=== PATIENT | female | born 1945 | race Caucasian/White ===

== ENCOUNTER 2016-09-18 12:13 | Day surgery (SDC) | payer MEDICARE, OTHER ==
[2016-09-14 13:58] VITALS: BMI 36.1
[~2016-09-18 12:13] MED LIST: CLINDAMYCIN 900 MG in DEXTROSE 5% IN WATER 50 ML IVPB ONE; FAMOTIDINE 20 MG/2 ML VIAL IV PRN; HYDROmorphone 1 MG/ML 1 ML SYRINGE IVP PRN; LACTATED RINGERS 1,000 ML IV SCH; LIDOCAINE 1% 20 ML VIAL (10MG/ML) FOR IV START INTRADERMA PRN; MIDAZOLAM 2 MG/2 ML VIAL IV PRN; ONDANSETRON 4 MG/2 ML VIAL IVP PRN
[2016-09-18 12:34] VITALS: TEMP 97.8
[2016-09-18] MEDS ORDERED: BUPIVACAINE (PF) 0.5% 30 ML VIAL SQ ONE ×2 (14:03)
[2016-09-18] MEDS ORDERED: LIDOCAINE 1% (PF) 10MG/ML VIAL SQ ONE ×2 (14:03)
[2016-09-18] MEDS ORDERED: MIDAZOLAM 2 MG/2 ML VIAL ONE (14:10)
--- NOTE | 2016-09-18 14:41 | FL ---
FLUOROSCOPY 3 second of fluoroscopy time were utilized during internal fixation of the left long finger. 2 images document the procedure.
[2016-09-18 15:03] VITALS: RESP 20
[2016-09-18 15:08] VITALS: BP 156/78; PULSE 66
--- NOTE | 2016-09-18 19:24 | OP ---
DATE OF SERVICE: SURGEON: DEVENDRA PÉREZ DO CONDUCTOR/BRAKEMAN: PREOPERATIVE DIAGNOSIS: Flail left middle finger. POSTOPERATIVE DIAGNOSIS: Flail left middle finger. OPERATION: Closed reduction percutaneous pinning PIP joint, left middle finger. ANESTHESIA: ESTIMATED BLOOD LOSS: SPECIMENS REMOVED: COMPLICATIONS: OPERATIVE FINDINGS: INDICATIONS: 71-year-old woman has very little use of her left arm due to stroke. She has had prior severe finger contractures which were treated with flexor tendon release in the palm for hygiene purposes because she was digging her nails into her palm. The index, ring and little fingers responded in a satisfactory manner with release of tension. For some reason, the middle finger resulted in complete extension of all 3 joints. The middle finger frequently gets in the way with transfer and day-to-day activities and purpose is to position the finger in a more functional position. PROCEDURE: This 71-year-old woman was taken to the operative suite, given IV sedation, a very light sedation. Her hand was prepped and draped in the usual manner after digital block was performed with 7 mL of a combination of Xylocaine and Marcaine, both without epinephrine. After the hand was prepped and draped, using C-arm fluoroscopy, the PIP joint of the left middle finger was flexed in 90 degrees and a 0.062 K wire was drilled across the joint down the shaft of the middle phalanx. The pin was left shy of the DIP joint. It was cut as deep as possible and a small punch was used to further advance the pin flush with the bone. The intent is pinned indefinitely. There was no wound to close. The hand was cleansed. Soft, bulky dressing was applied. She was taken to recovery room in satisfactory condition.
== END 2016-09-18 15:25 ==
LOC: OR 12:13
PROVIDERS: ATTEND Orthopaedic Surgery Hand Surgery
DX: M25.242 Flail joint, left hand (principal); I25.10 Atherosclerotic heart disease of native coronary artery without angina pectoris; I48.91 Unspecified atrial fibrillation; I50.9 Heart failure, unspecified; I11.0 Hypertensive heart disease with heart failure; E07.9 Disorder of thyroid, unspecified; R56.9 Unspecified convulsions; K21.9 Gastro-esophageal reflux disease without esophagitis; Z79.899 Other long term (current) drug therapy; G40.909 Epilepsy, unspecified, not intractable, without status epilepticus; G30.9 Alzheimer's disease, unspecified; F02.80 Dementia in other diseases classified elsewhere, unspecified severity, without behavioral disturbance, psychotic disturbance, mood disturbance, and anxiety; M81.0 Age-related osteoporosis without current pathological fracture; Z79.02 Long term (current) use of antithrombotics/antiplatelets; Z88.1 Allergy status to other antibiotic agents; Z88.5 Allergy status to narcotic agent
CPT/HCPCS: 73140; 26776; C1713; J2250; J2405; J2001; 99152; 99153

== ENCOUNTER 2016-11-06 13:02 | Day surgery (SDC) | payer MEDICARE, OTHER ==
[2016-11-03 12:48] VITALS: BMI 34.2
[~2016-11-06 13:02] MED LIST changes: +DEXAMETHASONE SOD PHOSPHATE 10 MG/ML 1 ML VIAL IV ONE; -FAMOTIDINE 20 MG/2 ML VIAL IV PRN; +ONDANSETRON 4 MG/2 ML VIAL IVP ONE; -ONDANSETRON 4 MG/2 ML VIAL IVP PRN
[2016-11-06 13:55] VITALS: RESP 16; TEMP 97.5
[2016-11-06] MEDS ORDERED: LIDOCAINE 1% 20 ML VIAL (10MG/ML) FOR IV START INTRADERMA ONE ×2 (14:00→14:02)
[2016-11-06] MEDS ORDERED: PROPOFOL 10 MG/ML 20 ML VIAL IV ONE (14:52)
[2016-11-06] MEDS ORDERED: MIDAZOLAM 2 MG/2 ML VIAL ONE (14:52)
[2016-11-06] MEDS ORDERED: fentaNYL (PF) 50 MCG/ML 2 ML AMP ONE (14:52)
[2016-11-06] MEDS ORDERED: BUPIVACAINE (PF) 0.5% 30 ML VIAL SQ ONE (15:04)
[2016-11-06] MEDS ORDERED: LIDOCAINE 2% (PF) 20 MG/ML 10ML SQ ONE (15:04)
[2016-11-06 15:41] VITALS: BP 170/80; PULSE 68
--- NOTE | 2016-11-06 15:47 | XR ---
FLUOROSCOPY 4 seconds of fluoroscopy time were utilized during left finger pin removal. 2 images document the pro cedure.
--- NOTE | 2016-11-08 09:34 | OP ---
DATE OF SERVICE: 11/06/2016 SURGEON: DEVENDRA PÉREZ DO WEIGHT SHIFTER: PREOPERATIVE DIAGNOSIS: Irritating metal, left middle finger. POSTOPERATIVE DIAGNOSIS: Irritating metal, left middle finger. OPERATION: Removal of a K-wire left middle finger. ANESTHESIA: ESTIMATED BLOOD LOSS: SPECIMENS REMOVED: COMPLICATIONS: OPERATIVE FINDINGS: INDICATIONS: A 71-year-old woman had a K-wire inserted across her PIP joint of her left middle finger in an attempt to create a flexion contracture. She had a prior stroke and had a reconstructive procedure with flexor tendon release to prevent flexion contractures in the palm of her hand. This worked satisfactory for her index, ring and little but her middle finger went into full unopposed extension, which created another deformity. The attempt to create a middle position flexion contracture of the PIP joint with a K-wire failed as the K-wire broke through the dorsal aspect of the proximal phalanx. At this point, the metal is simply irritating and needs to be removed. DESCRIPTION OF PROCEDURE: This 71-year-old woman was taken to the operative suite, given IV sedation, and I did a digital block of her left middle finger with a combination of Xylocaine and Marcaine, both without epinephrine. Her hand was then prepped and draped in the usual manner. It was elevated, exsanguinated and cuff was inflated to 250 mmHg. Using C-arm fluoroscopy, the pin edge was identified. A longitudinal incision was made over the pin and dissection was taken down to the pin site. The pin was removed with a large needle driver starting gate without complication. C-arm fluoroscopy demonstrated complete removal of the pin with no evidence of a fracture or other apparent complication. The wound was irrigated. Tourniquet was released. Hemostasis was satisfactory. I elected to leave the wound to heal by secondary intention and did not use any sutures. Soft, bulky dressing was applied. She was taken to the recovery room in satisfactory condition.
== END 2016-11-06 16:15 | disposition home or self-care (01) ==
LOC: OR 13:02
PROVIDERS: ATTEND Orthopaedic Surgery Hand Surgery
DX: T84.84XD Pain due to internal orthopedic prosthetic devices, implants and grafts, subsequent encounter (principal); T84.220A Displacement of internal fixation device of bones of hand and fingers, initial encounter; M79.645 Pain in left finger(s); I25.10 Atherosclerotic heart disease of native coronary artery without angina pectoris; I50.9 Heart failure, unspecified; M81.0 Age-related osteoporosis without current pathological fracture; I10 Essential (primary) hypertension; E78.5 Hyperlipidemia, unspecified; I48.91 Unspecified atrial fibrillation; G30.9 Alzheimer's disease, unspecified; F02.80 Dementia in other diseases classified elsewhere, unspecified severity, without behavioral disturbance, psychotic disturbance, mood disturbance, and anxiety; E05.90 Thyrotoxicosis, unspecified without thyrotoxic crisis or storm; F32.9 Major depressive disorder, single episode, unspecified; J44.9 Chronic obstructive pulmonary disease, unspecified; G40.909 Epilepsy, unspecified, not intractable, without status epilepticus; G20 Parkinson's disease; E03.9 Hypothyroidism, unspecified; H54.0 Blindness, both eyes; Z79.899 Other long term (current) drug therapy; Z88.1 Allergy status to other antibiotic agents; Z88.5 Allergy status to narcotic agent; Z87.891 Personal history of nicotine dependence
CPT/HCPCS: 73140; 26320; J2250; J1100; J2001; J2405; J3010; J2704

== ENCOUNTER → 2017-05-25 | Outpatient (CLI) | payer MEDICARE, OTHER ==
--- NOTE | 2017-05-25 15:58 | MR ---
EXAMINATION TYPE: MR brain wo/w con DATE OF EXAM: 05/25/2017 COMPARISON: NONE HISTORY: Seizure disorder, stroke TECHNIQUE: Multiplanar, multisequence images of the brain and brainstem is performed without and with IV contras t, utilizing 9 ml mL intravenous Gadavist . FINDINGS: Diffusion weighted images demonstrate no evidence of a recent infarct or other diffusion abnormality. There is no extra-axial fluid collection or significant white matter signal abnormality. Pronounced prominence of the ventricular system is seen with sulcal atrophy. There is somewhat undulating appea misty of the contour of the body of the lateral ventricles. Turbulent flow is seen within the foramen of Martin. No abnormal enhancement is seen within the ventricular cavities are basal cisterns. Cereb ral aqueduct is patent and the fourth ventricle is dilated. There is thinning of the corpus callosum. Numerous scattered foci of T2/FLAIR hyperintensity are seen within the subcortical and periventricula r white matter with confluence in the right matthews radiata. The brain volume is age appropriate. The craniocervical junction appears within normal limits. Post contrast images demonstrate no abnorm al enhancement. Peripherally there are numerous enhancing artery and venous structures mimicking the appearance of pachymeningeal enhancement. The dural venous sinuses appear patent. The visualized sinu ses are clear and the globes are intact. Mesial temporal lobes appear symmetric morphology and signal characteristic without abnormal enhancement. IMPRESSION: 1. No evidence of acute hemorrhage or abnormal intracranial enhancement. 2. Dilation of the ventricular system somewhat out of proportion to the patient's age and peripheral sulcal atrophy. Consideration should be given to normal pressure hydrocephalus. Corpus callosal thinn ing could relate to age-related atrophy or long-standing hydrocephalus. 3. Mesial temporal lobes are unremarkable and symmetric in this patient with a history of seizures.
== END | disposition home or self-care (01) ==
LOC: RADMRIMAIN 13:49
PROVIDERS: ATTEND Psychiatry & Neurology Neurology
DX: G31.9 Degenerative disease of nervous system, unspecified (principal)
CPT/HCPCS: 70553; A9581

== ENCOUNTER 2017-09-13 14:32 | Inpatient (IN) | payer MEDICARE, OTHER ==
--- NOTE | 2017-09-13 14:59 | ED ---
General Adult HPI - General Chief complaint: Weakness Stated complaint: Altered Mental Status Time Seen by Provider: 09/13/17 14:43 Source: patient, EMS Mode of arrival: EMS Limitations: no limitations - History of Present Illness Initial comments: Ju Doran is a 72-year-old female with extensive past medical history including CVA in the past which left her with left-sided deficits, mental impairment and a baseline mental status of being alert and oriented to self only. Patient presents to the emergency department today via EMS from her snf facility for evaluation of generalized fatigue and fever. Per EMS the patient was noted to have a fever of 101 at her skilled nursing. They felt that she was less active and less responsive than usual so they sent her to the emergency department for further evaluation. Upon initial evaluation the patient is sleeping, she wakes to voice, she is able to say her name. When greeted with how low the patient's is high. When asked if she is in pain the patient says yes, when asked to localize the patient is unable to. Patient moans to any palpation of the arms, legs and abdomen. - Related Data Home Medications Medication Instructions Recorded Confirmed Doxazosin Mesylate 2 mg PO DAILY@0900 06/30/14 09/13/17 Folic Acid 1 mg PO DAILY@0906/30/14 09/13/17 Memantine [Namenda] 10 mg PO Q12H 06/30/14 09/13/17 Metoprolol Tartrate [Lopressor] 25 mg PO Q12H 06/30/14 09/13/17 Omeprazole [PriLOSEC] 20 mg PO BID@0600,1700 06/30/14 09/13/17 Simethicone [Gas-X] 125 mg PO PC-TID@,,18 06/30/14 09/13/17 Simvastatin [Zocor] 10 mg PO HS@209906/30/14 09/13/17 carBAMazepine [Carbatrol] 300 mg PO BID@0900,209906/30/14 09/13/17 lamoTRIgine [LaMICtal] 150 mg PO Q12H 06/30/14 09/13/17 Lactulose [Cephulac] 15 100ml.bag PO Q12HR 11/03/14 09/13/17 Potassium Chloride [Klor-Con 20] 20 meq PO DAILY@0900 11/03/14 09/13/17 Ipratropium-Albuterol Nebulize 3 ml INHALATION RT-Q4H PRN 11/20/14 09/13/17 [Duoneb 0.5 mg-3 mg/3 ml Soln] Dipyridamole-Aspirin 200-25 mg 1 tab PO BID@0900,1700 09/18/16 09/13/17 [Aggrenox 25MG -200MG] Acetaminophen Tab [Tylenol Tab] 650 mg PO Q4H PRN 11/03/16 09/13/17 Bismuth Subsalicylate 30 ml PO Q4HR PRN 11/03/16 09/13/17 [Pepto-Bismol] Calcium Carbonate [Tums] 500 mg PO Q6H PRN 11/03/16 09/13/17 Levothyroxine Sodium [Synthroid] 75 mcg PO DAILY@0600 11/03/16 09/13/17 Mag Hydrox/Al Hydrox/Simeth 30 ml PO Q4HR PRN 11/03/16 09/13/17 [Maalox] Valproic Acid [Depakene] 500 mg PO Q12H 11/03/16 09/13/17 guaiFENesin-DM 100-10MG/5ML 10 ml PO Q6HR PRN 11/03/16 09/13/17 [Robitussin DM] Ammonium Lactate Lotion 1 applic TOPICAL HS 09/13/17 09/13/17 [Lac-Hydrin 12% Lotion] DULoxetine HCL [Cymbalta] 20 mg PO DAILY@0900 09/13/17 09/13/17 Ensure Clear 120 ml PO TID@09,13,21 09/13/17 09/13/17 guaiFENesin [guaiFENesin Oral 200 mg PO Q4H PRN 09/13/17 09/13/17 Solution] Allergies Allergy/AdvReac Type Severity Reaction Status Date / Time Cephalosporins Allergy Unknown Verified 09/13/17 14:44 erythromycin lactobionate Allergy Unknown Verified 09/13/17 14:44 [From Erythrocin] propoxyphene napsylate Allergy Unknown Verified 09/13/17 14:44 [From Darvocet-N 100] Review of Systems ROS Statement: Those systems with pertinent positive or pertinent negative responses have been documented in the HPI. ROS Other: All systems not noted in ROS Statement are negative. Limitations: ROS unobtainable due to patients medical condition Past Medical History Past Medical History: Atrial Fibrillation, Coronary Artery Disease (CAD), Heart Failure, CVA/TIA, Dementia, Eye Disorder, Hyperlipidemia, Hypertension, Musculoskeletal Disorder, Neurologic Disorder, Pneumonia, Seizure Disorder, Thyroid Disorder Additional Past Medical History / Comment(s): HX OF METABOLIC ENCEPHALOPATHY, SEPSIS., LEGALLY BLIND, PARKINSONS, OSTEOPOROSIS, DEMENTIA, DELAYED DEVELOPMENT ,. plasma protein metabolic disorder, unspecified disease of pericardium, SOME EDEMA LOWER EXTREMITIES, UNKNOWN DATE OF LAST SEIZURE. ,HYPOTHYOID, UTI'S,ANEMIA , HEART DISEASE, CONTRACTURE LT HAND WITH FINGER DIGGING INTO PALM, , NAUSEATED EASILY.,INCONTINENT. URINE & STOOL- WEARS ATTENDS. , ALLAN LIFT, UNABLE TO STAND., DAVIDSON WRAP ON LEFT HAND FROM SURGERY 09/2016-NURSE STATES PIN LEFT MIDDLE FINGER-NO DRAINAGE. History of Any Multi-Drug Resistant Organisms: MRSA Date of last positivie culture/infection: 06/24/2014 MDRO Source:: Left First Toe Past Surgical History: Orthopedic Surgery Additional Past Surgical History / Comment(s): RT. ANKLE, EYES, 11/06/14 PEG TUBE , FLEXOR TENDON RELEASE SURGERIES FOR FINGER CONTRACTURES., CLOSED REDUCTION PERCUANEOUS PINNING LEFT MIDDLE FINGER.( 09/06/16) Past Anesthesia/Blood Transfusion Reactions: Unable to Obtain Additional Past Anesthesia/Blood Transfusion Reaction / Comment(s): UNKNOWN- PT @ [facility] ON THE [facility] Past Psychological History: Depression Smoking Status: Never smoker Past Alcohol Use History: None Reported Past Drug Use History: None Reported - Past Family History Father Family Medical History: Unable to Obtain Additional Family Medical History / Comment(s): . Mother Family Medical History: Unable to Obtain Additional Family Medical History / Comment(s): . General Exam Limitations: no limitations General appearance: other (Patient sleeping, wakes to voice) Head exam: Present: atraumatic, normocephalic Eye exam: Present: PERRL ENT exam: Present: normal exam Neck exam: Present: normal inspection Respiratory exam: Absent: respiratory distress Cardiovascular Exam: Present: regular rate, normal rhythm GI/Abdominal exam: Present: soft, other (obese, patient moans during exam, no guarding, does not localize pain to any specific region ) Rectal exam: Present: deferred External exam: Present: other (diapered) Extremities exam: Present: other (left arm weakness - baseline ) Neurological exam: Present: other (sleepy, wakes to voice, oriented to self) Skin exam: Present: warm, dry Course Vital Signs 09/13/17 09/13/17 09/13/17 14:36 15:58 17:10 Temperature 99.6 F Pulse Rate 78 80 90 Respiratory 16 18 16 Rate Blood Pressure 97/49 112/53 117/55 O2 Sat by Pulse 99 100 99 Oximetry EKG Findings - EKG Comments: EKG Findings:: EKG at 15:05 - rate 82, rhythm is sinus, normal axis, SC interval is prolonged with a first-degree AV block. There are no acute ST elevations or depressions noted. Medical Decision Making - Medical Decision Making Patient was seen and evaluated, vital signs were reviewed Patient was noted to be febrile at her skilled nursing, currently afebrile but hypotensive A sepsis workup was ordered including influenza PCR urinalysis reveals gross contamination, urine culture is ordered Patient is ALLERGIC to cephalosporins, Levaquin was ordered Sepsis identified - patient with hypotension, fever, UTI Labs reveal NAVA - IVF ordered Troponin mildly elevated - likely related to sepsis, EKG normal - will trend Patient care discussed with Dr. Murcia who accepts admission for sepsis 2/2 UTI , elevated trop, NAVA Agrees with workup and treatment as ordered - Lab Data Result diagrams: 09/13/17 15:10 09/13/17 15:10 Lab Results 09/13/17 09/13/17 09/13/17 Range/Units 15:10 15:10 15:10 WBC 7.9 (3.8-10.6) k/uL RBC 3.67 L (3.80-5.40) m/uL Hgb 11.9 (11.4-16.0) gm/dL Hct 39.3 (34.0-46.0) % MCV 107.1 H (80.0-100.0) fL MCH 32.5 (25.0-35.0) pg MCHC 30.3 L (31.0-37.0) g/dL RDW 13.3 (11.5-15.5) % Plt Count 136 L (150-450) k/uL Neutrophils % 91 % Lymphocytes % 3 % Monocytes % 4 % Eosinophils % 0 % Basophils % 0 % Neutrophils # 7.2 (1.3-7.7) k/uL Lymphocytes # 0.3 L (1.0-4.8) k/uL Monocytes # 0.3 (0-1.0) k/uL Eosinophils # 0.0 (0-0.7) k/uL Basophils # 0.0 (0-0.2) k/uL Hypochromasia Slight Macrocytosis Moderate PT (9.0-12.0) sec INR (<1.2) APTT (22.0-30.0) sec Sodium 140 (137-145) mmol/L Potassium 4.6 (3.5-5.1) mmol/L Chloride 104 (98-107) mmol/L Carbon Dioxide 27 (22-30) mmol/L Anion Gap 9 mmol/L BUN 22 H (7-17) mg/dL Creatinine 1.30 H (0.52-1.04) mg/dL Est GFR (MDRD) Af Amer 49 (>60 ml/min/1.73 sqM) Est GFR (MDRD) Non-Af 40 (>60 ml/min/1.73 sqM) Glucose 108 H (74-99) mg/dL Plasma Lactic Acid Junior 1.2 (0.7-2.0) mmol/L Calcium 8.5 (8.4-10.2) mg/dL Total Bilirubin 0.7 (0.2-1.3) mg/dL AST 24 (14-36) U/L ALT 17 (9-52) U/L Alkaline Phosphatase 155 H (38-126) U/L Troponin I (0.000-0.034) ng/mL Total Protein 6.2 L (6.3-8.2) g/dL Albumin 3.2 L (3.5-5.0) g/dL Urine Color Urine Appearance (Clear) Urine pH (5.0-8.0) Ur Specific [place] (1.001-1.035) Urine Protein (Negative) Urine Glucose (UA) (Negative) Urine Ketones (Negative) Urine Blood (Negative) Urine Nitrite (Negative) Urine Bilirubin (Negative) Urine Urobilinogen (<2.0) mg/dL Ur Leukocyte Esterase (Negative) Urine RBC (0-5) /hpf Urine WBC (0-5) /hpf Urine WBC Clumps (None) /hpf Amorphous Sediment (None) /hpf Urine Bacteria (None) /hpf Influenza Type A RNA (Not Detectd) Influenza Type B (PCR) (Not Detectd) 09/13/17 09/13/17 09/13/17 Range/Units 15:10 15:10 15:10 WBC (3.8-10.6) k/uL RBC (3.80-5.40) m/uL Hgb (11.4-16.0) gm/dL Hct (34.0-46.0) % MCV (80.0-100.0) fL MCH (25.0-35.0) pg MCHC (31.0-37.0) g/dL RDW (11.5-15.5) % Plt Count (150-450) k/uL Neutrophils % % Lymphocytes % % Monocytes % % Eosinophils % % Basophils % % Neutrophils # (1.3-7.7) k/uL Lymphocytes # (1.0-4.8) k/uL Monocytes # (0-1.0) k/uL Eosinophils # (0-0.7) k/uL Basophils # (0-0.2) k/uL Hypochromasia Macrocytosis PT 11.2 (9.0-12.0) sec INR 1.2 H (<1.2) APTT 23.8 (22.0-30.0) sec Sodium (137-145) mmol/L Potassium (3.5-5.1) mmol/L Chloride (98-107) mmol/L Carbon Dioxide (22-30) mmol/L Anion Gap mmol/L BUN (7-17) mg/dL Creatinine (0.52-1.04) mg/dL Est GFR (MDRD) Af Amer (>60 ml/min/1.73 sqM) Est GFR (MDRD) Non-Af (>60 ml/min/1.73 sqM) Glucose (74-99) mg/dL Plasma Lactic Acid Junior (0.7-2.0) mmol/L Calcium (8.4-10.2) mg/dL Total Bilirubin (0.2-1.3) mg/dL AST (14-36) U/L ALT (9-52) U/L Alkaline Phosphatase (38-126) U/L Troponin I 0.072 H* (0.000-0.034) ng/mL Total Protein (6.3-8.2) g/dL Albumin (3.5-5.0) g/dL Urine Color Dark Brown Urine Appearance Turbid H (Clear) Urine pH 6.0 (5.0-8.0) Ur Specific [place] 1.017 (1.001-1.035) Urine Protein 2+ H (Negative) Urine Glucose (UA) Negative (Negative) Urine Ketones Negative (Negative) Urine Blood Moderate H (Negative) Urine Nitrite Negative (Negative) Urine Bilirubin 1+ H (Negative) Urine Urobilinogen 8.0 (<2.0) mg/dL Ur Leukocyte Esterase Large H (Negative) Urine RBC 137 H (0-5) /hpf Urine WBC >182 H (0-5) /hpf Urine WBC Clumps Many H (None) /hpf Amorphous Sediment Few H (None) /hpf Urine Bacteria Many H (None) /hpf Influenza Type A RNA (Not Detectd) Influenza Type B (PCR) (Not Detectd) 09/13/17 Range/Units 15:13 WBC (3.8-10.6) k/uL RBC (3.80-5.40) m/uL Hgb (11.4-16.0) gm/dL Hct (34.0-46.0) % MCV (80.0-100.0) fL MCH (25.0-35.0) pg MCHC (31.0-37.0) g/dL RDW (11.5-15.5) % Plt Count (150-450) k/uL Neutrophils % % Lymphocytes % % Monocytes % % Eosinophils % % Basophils % % Neutrophils # (1.3-7.7) k/uL Lymphocytes # (1.0-4.8) k/uL Monocytes # (0-1.0) k/uL Eosinophils # (0-0.7) k/uL Basophils # (0-0.2) k/uL Hypochromasia Macrocytosis PT (9.0-12.0) sec INR (<1.2) APTT (22.0-30.0) sec Sodium (137-145) mmol/L Potassium (3.5-5.1) mmol/L Chloride (98-107) mmol/L Carbon Dioxide (22-30) mmol/L Anion Gap mmol/L BUN (7-17) mg/dL Creatinine (0.52-1.04) mg/dL Est GFR (MDRD) Af Amer (>60 ml/min/1.73 sqM) Est GFR (MDRD) Non-Af (>60 ml/min/1.73 sqM) Glucose (74-99) mg/dL Plasma Lactic Acid Junior (0.7-2.0) mmol/L Calcium (8.4-10.2) mg/dL Total Bilirubin (0.2-1.3) mg/dL AST (14-36) U/L ALT (9-52) U/L Alkaline Phosphatase (38-126) U/L Troponin I (0.000-0.034) ng/mL Total Protein (6.3-8.2) g/dL Albumin (3.5-5.0) g/dL Urine Color Urine Appearance (Clear) Urine pH (5.0-8.0) Ur Specific [place] (1.001-1.035) Urine Protein (Negative) Urine Glucose (UA) (Negative) Urine Ketones (Negative) Urine Blood (Negative) Urine Nitrite (Negative) Urine Bilirubin (Negative) Urine Urobilinogen (<2.0) mg/dL Ur Leukocyte Esterase (Negative) Urine RBC (0-5) /hpf Urine WBC (0-5) /hpf Urine WBC Clumps (None) /hpf Amorphous Sediment (None) /hpf Urine Bacteria (None) /hpf Influenza Type A RNA Not Detected (Not Detectd) Influenza Type B (PCR) Not Detected (Not Detectd) Disposition Clinical Impression: Sepsis, Urinary tract infection, Altered mental status, NAVA (acute kidney injury) Disposition: ADMITTED IP TO THIS HOSP Condition: Fair Referrals: Luiz Ortiz MD [Primary Care Provider] - 1-2 days Time of Disposition: 17:00
[2017-09-13] MEDS: SODIUM CHLORIDE 0.9% 500 ML IV SCH ×2 (15:18→16:25)
[2017-09-13 15:28] LABS: Basophils % (A) 0 %; Eosinophils % (A) 0 %; HCT 39.3 % (34.0-46.0); HGB 11.9 gm/dL (11.4-16.0); Hypochromasia Slight; Lymphocytes # (A) 0.3 k/uL (1.0-4.8); Lymphocytes % (A) 3 %; MCH 32.5 pg (25.0-35.0); MCHC 30.3 g/dL (31.0-37.0); MCV 107.1 fL (80.0-100.0); Macrocytosis Moderate; Mean Platelet Volume 6.7; Monocytes # (A) 0.3 k/uL (0-1.0); Monocytes % (A) 4 %; Neutrophils # (A) 7.2 k/uL (1.3-7.7); Neutrophils % (A) 91 %; Platelet Count 136 k/uL (150-450); RBC 3.67 m/uL (3.80-5.40); RDW 13.3 % (11.5-15.5); WBC 7.9 k/uL (3.8-10.6)
[2017-09-13 15:30] LABS: Amorphous Sediment,Urine Few /hpf; Appearance,Urine Turbid (Clear); Bacteria,Urine Many /hpf; Bilirubin,Urine 1+ (Negative); Blood,Urine Moderate (Negative); Color,Urine Dark Brown; Glucose,Urine (UA) Negative (Negative); Ketones,Urine Negative (Negative); Leukocyte Esterase,Urine Large (Negative); Nitrite,Urine Negative (Negative); Protein,Urine 2+ (Negative); RBC,Urine 137 /hpf (0-5); Specific Gravity,Urine 1.017 (1.001-1.035); WBC,Urine >182 /hpf (0-5)
[2017-09-13 15:33] LABS: INR 1.2 (<1.2); Partial Thromboplastin Time 23.8 sec (22.0-30.0); Prothrombin Time 11.2 sec (9.0-12.0)
[2017-09-13 15:36] LABS: Albumin 3.2 g/dL (3.5-5.0); Calcium 8.5 mg/dL (8.4-10.2); Potassium 4.6 mmol/L (3.5-5.1); Total Bilirubin 0.7 mg/dL (0.2-1.3); Total Protein 6.2 g/dL (6.3-8.2)
--- NOTE | 2017-09-13 15:38 | XR ---
EXAMINATION TYPE: XR chest 1V portable DATE OF EXAM: 09/13/2017 COMPARISON: Chest x-ray November 04, 2014 HISTORY: Fever. TECHNIQUE: Single AP portable frontal upright view of the chest is obtained. FINDINGS: There is chronic parenchymal change with elevated right hemidiaphragm and patchy right bas ilar and left midlung opacities that remains present. The cardiac silhouette size remains enlarged w ith atherosclerotic change in aortic knob. The osseous structures remain demineralized. Underlying le voconvex scoliosis is redemonstrated. Cholecystectomy clips are noted. IMPRESSION: Cardiomegaly and chronic changes with possible left midlung and right basilar acute infil trates, correlate clinically.
[2017-09-13] MEDS ORDERED: HEPARIN SODIUM,PORCINE 5,000 UNIT/ML 1 ML VIAL IV ONE (16:04)
[2017-09-13] MEDS ORDERED: HEPARIN SODIUM,PORCINE 5,000 UNIT/ML 1 ML VIAL IV PRN (16:04)
[2017-09-13] MEDS ORDERED: HEPARIN SOD,PORK IN 0.45% NACL 25,000 UNIT in 0.45% NACL 1 500ML.BAG IV SCH (16:15)
[2017-09-13] MEDS: SODIUM CHLORIDE 0.9% 1,000 ML IV SCH (16:25)
[2017-09-13] MEDS ORDERED: LEVOFLOXACIN 750MG-D5W PMX 750 MG in DEXTROSE/WATER 1 150ML.BAG IVPB STA (16:28)
[2017-09-13] MEDS ORDERED: NALOXONE 0.4 MG/ML 1 ML VIAL IV PRN (16:50)
[2017-09-13] MEDS ORDERED: guaiFENesin SYRUP 100MG/5ML 200 MG/10 ML CUP PO PRN (18:16)
[2017-09-13] MEDS ORDERED: CALCIUM CARBONATE 500 MG CHEWABLE PO PRN (18:16)
[2017-09-13] MEDS: IPRATROPIUM-ALBUTEROL 3 ML NEB INHALATION PRN (19:52)
[2017-09-13] MEDS ORDERED: ENSURE CLEAR PO SCH (21:00)
[2017-09-13] MEDS: LACTULOSE 20 GM/30 ML CUP PO SCH (21:25)
[2017-09-13] MEDS: ACETAMINOPHEN TAB 325 MG TAB PO PRN (21:25)
[2017-09-13] MEDS: AMMONIUM LACTATE 12% LOTION 225 GM BTL TOPICAL SCH (21:26)
[2017-09-13] MEDS: ATORVASTATIN 10 MG TAB PO SCH (21:26)
[2017-09-13] MEDS: VALPROIC ACID ORAL SOLN 250 MG/5 ML CUP PO SCH (21:26)
[2017-09-13] MEDS: carBAMazepine 300 MG CPMP.12HR PO SCH (21:32)
[2017-09-13] MEDS: METOPROLOL TARTRATE 25 MG TAB PO SCH (21:32)
[2017-09-13] MEDS: MEMANTINE 10 MG TAB PO SCH (21:33)
[2017-09-13] MEDS: lamoTRIgine 100 MG TAB PO SCH (21:33)
[2017-09-14] MEDS: SODIUM CHLORIDE 0.9% 1,000 ML IV SCH ×2 (04:39→12:58)
[2017-09-14] MEDS: PANTOPRAZOLE 40 MG TABLET PO SCH (06:17)
[2017-09-14] MEDS: LEVOTHYROXINE 75 MCG TAB PO SCH (06:17)
[2017-09-14] MEDS: lamoTRIgine 100 MG TAB PO SCH ×2 (06:17→18:18)
[2017-09-14] MEDS ORDERED: ONDANSETRON 4 MG/2 ML VIAL IVP PRN (08:14)
[2017-09-14] MEDS: IPRATROPIUM-ALBUTEROL 3 ML NEB INHALATION PRN (08:37)
[2017-09-14] MEDS: carBAMazepine 300 MG CPMP.12HR PO SCH ×2 (10:10→20:55)
[2017-09-14] MEDS: DIPYRIDAMOLE-ASPIRIN 200-25 MG 1 EACH CPMP.12HR PO SCH ×2 (10:10→18:18)
[2017-09-14] MEDS: DOXAZOSIN 2 MG TAB PO SCH (10:10)
[2017-09-14] MEDS: MEMANTINE 10 MG TAB PO SCH ×2 (10:11→20:56)
[2017-09-14] MEDS: DULoxetine HCL 20 MG CAPSULE.DR PO SCH (10:11)
[2017-09-14] MEDS: LACTULOSE 20 GM/30 ML CUP PO SCH ×2 (10:11→20:55)
[2017-09-14] MEDS: METOPROLOL TARTRATE 25 MG TAB PO SCH ×2 (10:12→20:56)
[2017-09-14] MEDS: SIMETHICONE 80 MG CHEWABLE PO SCH ×3 (10:12→18:18)
[2017-09-14] MEDS: VALPROIC ACID ORAL SOLN 250 MG/5 ML CUP PO SCH ×2 (10:12→20:56)
[2017-09-14] MEDS: FOLIC ACID 1 MG TAB PO SCH (12:58)
[2017-09-14] MEDS: ACETAMINOPHEN TAB 325 MG TAB PO PRN ×2 (14:38→22:48)
--- NOTE | 2017-09-14 18:01 | HP ---
HISTORY AND PHYSICAL DATE OF ADMISSION: 09/13/2017 PRESENTING COMPLAINT: Fever. HISTORY OF PRESENTING COMPLAINT: This is a 72-year-old patient who follows with Dr. Ortiz. She is a resident of [facility]. She has a rather extensive medical history. Chronic stable medical conditions include congestive heart failure, EF not known, Alzheimer's dementia, hypertension, hyperlipidemia, seizure disorder, hypothyroid, bilateral footdrop, chronic urine incontinence, left-sided weakness, Parkinson disease. The patient at her baseline needs a Troy lift. The patient is able to answer some simple questions. The patient presented with fever. The patient denies any cough. No shortness of breath. The patient was found to have extremely infected-appearing urine. The patient was meeting sepsis criteria in the ER and was given a dose of IV antibiotic, given IV fluids. The patient says she does not have much of an appetite. Admitted for the same. REVIEW OF SYSTEMS: Difficult to obtain. GENERAL: Tired. HEENT: None. RESPIRATORY: None. CARDIOVASCULAR: None. GASTROINTESTINAL: None. GENITOURINARY: Incontinent. DERMATOLOGICAL: None. HEMATOLOGICAL: None. LYMPHATICS: None. PSYCHIATRY: Unable to determine. NEUROLOGICAL: Left-sided weakness, bilateral footdrop. PAST MEDICAL HISTORY: 1. Atrial fibrillation. 2. Congestive heart failure. 3. Alzheimer's. 4. Hypertension. 5. Hyperlipidemia. 6. Seizure disorder. 7. Hypothyroid. 8. Bilateral footdrop. 9. Chronic urine incontinence. 10.Left-sided weakness. 11.Parkinson disease. 12.Osteoporosis. 13.Patient does use a Troy left. PAST SURGICAL HISTORY: 1. Right ankle surgery. 2. Patient did have a PEG tube in 2014. 3. Flexor tendon release surgery for finger contractures. PSYCH HISTORY: History of depression. SOCIAL HISTORY: Currently a resident of [facility] the [facility], bed-bound and needs a Troy lift to her wheelchair. Patient can speak slowly. She is legally blind. She has a legal guardian, Arie Romero. No smoking. No alcohol. FAMILY HISTORY: Patient cannot tell. HOME MEDICATIONS: 1. Lamictal 150 mg q.12. 2. Robitussin DM 10 mL q.6 p.r.n. 3. Guaifenesin 200 mg q.4 p.r.n. 4. Carbatrol 300 mg p.o. b.i.d. 5. Depakene 500 mg p.o. q.12. 6. Zocor 10 mg p.o. at bedtime. 7. Gas-X 125 mg p.o. before meals t.i.d. 8. Potassium 20 mEq p.o. daily. 9. Prilosec 20 mg p.o. b.i.d. 10.Lopressor 25 p.o. q.12. 11.Namenda 10 mg p.o. q.12. 12.Maalox 30 mL q.4 p.r.n. 13.Synthroid 75 mcg p.o. daily. 14.Lactulose q.12. 15.DuoNeb q.4 p.r.n. 16.Folic acid 1 mg a day. 17.Ensure 120 mL p.o. t.i.d. 18.Doxazosin 2 mg p.o. daily. 19.Aggrenox 1 tablet p.o. b.i.d. 20.Cymbalta 20 mg p.o. daily. 21.Tums 500 mg q.6 p.r.n. 22.Pepto-Bismol 30 mL p.o. q.4 p.r.n. 23.Lac-Hydrin 12% topically at bedtime. 24.Tylenol. ALLERGIES: 1. CEPHALOSPORINS. 2. ERYTHROMYCIN. 3. DARVOCET-N 100. PHYSICAL EXAMINATION: VITAL SIGNS ON PRESENTATION: Temperature 100.4, pulse 104, respiration 16, blood pressure 130/59, pulse ox 94% on 3 L. GENERAL APPEARANCE: Well built, BMI 30.8. Propped up in bed, tired-appearing. EYES: Pupils equal. Conjunctivae normal. HEENT: External appearance of nose and ears normal. Oral cavity dry mucous membrane. NECK: JVD not raised. Mass not palpable. RESPIRATORY: Effort normal. LUNGS: Diminished breath sounds. CARDIOVASCULAR: First and second sounds normal. No edema. ABDOMEN: Soft, nontender. Liver and spleen not palpable. LYMPHATIC: No lymph node palpable in neck or axillae. PSYCHIATRY: Cannot really be assessed. Patient is only able answer some simple questions. Mood and affect slightly low. NEUROLOGICAL: Pupils equal. No facial asymmetry. Patient takes time to speak and then does speak a few words. She is dysarthric. The patient is able to lift both her arms, not her legs. Bilateral footdrop. Patient has a contracture of the left distal hand. INVESTIGATIONS: White count 7.9, hemoglobin 11.9, platelets 136, potassium 4.6, BUN 22, creatinine 1.30. The last creatinine is from 2014, being 0.4. Troponin 0.072. UA showing large leukocyte esterase, WBC. C difficile negative. Influenza negative. EKG normal sinus rhythm. Chest x-ray chronic parenchymal changes, elevated right diaphragm, and patchy right basilar and left lung opacities probably are present. ASSESSMENT: 1. Acute sepsis, likely from urinary tract infection, given lack of respiratory symptoms, though a limited historian. Pneumonia looks unlikely but cannot entirely rule it out. 2. Paroxysmal atrial fibrillation, currently in sinus rhythm. 3. Chronic congestive heart failure; ejection fraction not known. 4. Alzheimer's dementia, late onset type. 5. Hypertension. 6. Hyperlipidemia. 7. Seizure disorder. 8. Hypothyroid. 9. Bilateral footdrop. 10.Chronic urinary incontinence. 11.Depression not otherwise specified. 12.Chronic osteopenia. 13.Chronic medical debility. At her baseline, patient uses a Troy lift. 14.Chronic dysarthria, likely from underlying old stroke. 15.Possible acute renal failure; could be prerenal from decreased oral intake. Will hydrate the patient and see where the creatinine goes from here. 16.CODE STATUS: DO NOT RESUSCITATE. PLAN: The patient will be started on IV ceftriaxone. Also will be giving IV fluids with the look of the acute renal failure component. MMODL / IJN: [id number] /
[2017-09-14] MEDS: cefTRIAXone IN SWFI 1,000 MG/10 ML SYRINGE IVP SCH (18:18)
[2017-09-14] MEDS: LACTATED RINGERS 1,000 ML IV SCH (18:19)
[2017-09-14] MEDS: ATORVASTATIN 10 MG TAB PO SCH (20:54)
[2017-09-14] MEDS: AMMONIUM LACTATE 12% LOTION 225 GM BTL TOPICAL SCH (20:57)
[2017-09-15] MEDS: lamoTRIgine 100 MG TAB PO SCH ×2 (06:39→17:44)
[2017-09-15] MEDS: LEVOTHYROXINE 75 MCG TAB PO SCH (06:39)
[2017-09-15] MEDS: LACTATED RINGERS 1,000 ML IV SCH ×2 (06:39→20:06)
[2017-09-15] MEDS: PANTOPRAZOLE 40 MG TABLET PO SCH (06:40)
[2017-09-15 07:14] LABS: Anion Gap 9 mmol/L; Blood Urea Nitrogen 14 mg/dL (7-17); Calcium 8.8 mg/dL (8.4-10.2); Carbon Dioxide 25 mmol/L (22-30); Chloride 109 mmol/L (98-107); Glucose 92 mg/dL (74-99); Sodium 143 mmol/L (137-145)
[2017-09-15 07:27] LABS: Potassium 4.2 mmol/L (3.5-5.1)
[2017-09-15] MEDS: LACTULOSE 20 GM/30 ML CUP PO SCH ×2 (08:22→20:22)
[2017-09-15] MEDS: carBAMazepine 300 MG CPMP.12HR PO SCH ×2 (08:22→20:22)
[2017-09-15] MEDS: DIPYRIDAMOLE-ASPIRIN 200-25 MG 1 EACH CPMP.12HR PO SCH ×2 (08:22→17:40)
[2017-09-15] MEDS: DULoxetine HCL 20 MG CAPSULE.DR PO SCH (08:23)
[2017-09-15] MEDS: MEMANTINE 10 MG TAB PO SCH ×2 (08:24→20:23)
[2017-09-15] MEDS: SIMETHICONE 80 MG CHEWABLE PO SCH ×3 (08:24→17:41)
[2017-09-15] MEDS: VALPROIC ACID ORAL SOLN 250 MG/5 ML CUP PO SCH ×2 (08:24→20:23)
[2017-09-15] MEDS: METOPROLOL TARTRATE 25 MG TAB PO SCH ×2 (08:24→20:26)
--- NOTE | 2017-09-15 11:35 | P.PN ---
Progress Note - Text Progress Note Date: 09/15/17 DATE OF SERVICE: 09/15/2017 PRESENTING COMPLAINT: Fever/urosepsis HISTORY OF PRESENT ILLNESS: 72-year-old female resident of [facility] requires Troy lift at baseline able to answer some simple questions presented to the emergency department with fever. Initial diagnostics reveal extremely infected appearing urine and meeting sepsis criteria in the emergency department given a dose antibiotics and IV fluids. Admitted for the same. INTERVAL HISTORY: 09/15/2017: Lying in bed, no acute overnight events, vital signs stable, afebrile, complaining of abdominal pain this morning, has tenderness to palpation. Did not eat her breakfast due to stomach pains. Is able to answer a few more questions today. Last BM 09/15/2017. REVIEW OF SYSTEMS: Done for constitutional ,cardiovascular, GI, pulmonary with relevant findings as above. CURRENT MEDICATIONS Acetaminophen, DuoNeb, Lipitor, Tums, carbamazepine, Rocephin, Aggrenox, Cardura , duloxetine, folic acid, Robitussin, lactated Ringer's, Lac-Hydrin 12%, lactulose, Lamictal, Synthroid, Namenda, metoprolol tartrate, Narcan, Zofran, Protonix, simethicone, valproic acid. PHYSICAL EXAM VITAL SIGNS: Temperature 98.8, pulse 76, respiratory rate 18, blood pressure 127/59, oxygen saturation 99% on 3 L. GENERAL APPEARANCE: Lying in bed, pale tired appearing, not in distress. HENT: Normocephalic, JVD not raised. Mass not palpable. Oral cavity dry mucous membranes, external appearance of ears and nose normal. EYES:Pupils equal. Conjunctiva normal. RESPIRATORY: Respiratory effort normal. Lungs diminished to auscultation. CARDIOVASCULAR: First and second sounds normal. No edema. ABDOMEN: Soft. Liver and spleen not palpable. tenderness to palpation. No mass palpable. PSYCHIATRY: Unable to assess able only to answer simple questions, mood and affect somewhat low. NEUROLOGICAL: Takes time to speak then speaks a few words. Dysarthric. Able to lift both of her arms. Unable to lift legs, bilateral foot drop. Left hand has a contracture. INVESTIGATIONS: LABS: Sodium 143, chloride 109, BUN 14, creatinine 0.60. ASSESSMENT: -Acute sepsis, likely from urinary tract infection, given lack respiratory symptoms though a limited historian. Pneumonia in the differential and looks unlikely but not entirely ruled out. -Acute abdominal pain in a patient with a severe urinary tract infection, having bowel movements, causing nausea -Paroxysmal atrial fibrillation, currently in sinus rhythm. -Chronic congestive heart failure, ejection fraction not known. -Alzheimer's dementia, late onset type. -Hypertension. -Hyperlipidemia. -Seizure disorder. -Hypothyroidism. -Bilateral foot drop. -Chronic urinary incontinence. -Depression not otherwise specified. -Chronic osteopenia. -Chronic medical debility, at her baseline uses a Troy lift. -Chronic dysarthria, likely from underlying old stroke. -Possible acute renal failure, could be prerenal from decreased oral intake, resolved -CODE STATUS DO NOT RESUSCITATE PLAN: Abdominal x-ray and Zofran ordered. Continue current antibiotic course and IV fluids as patient intake remains low. Plan of care discussed at the bedside we will follow closely. CLINICAL DOCUMENTATION DEVELOPER statement: Patient was seen and examined by nurse practitioner Jacy Winn and all elements of the case discussed with attending Dr. Murcia
[2017-09-15] MEDS: FOLIC ACID 1 MG TAB PO SCH (13:01)
[2017-09-15] MEDS: DOXAZOSIN 2 MG TAB PO SCH (13:01)
[2017-09-15] MEDS: cefTRIAXone IN SWFI 1,000 MG/10 ML SYRINGE IVP SCH (14:06)
--- NOTE | 2017-09-15 17:23 | XR ---
EXAMINATION TYPE: XR abdomen 2V DATE OF EXAM: 09/15/2017 5:11 PM CLINICAL HISTORY: Abdominal pain TECHNIQUE: 3 views the abdomen were obtained. COMPARISON: None. FINDINGS: Large amount stool noted in the rectum which could be inspissated and impacted. There appea rs to be rectal wall thickening. There is an overall nonobstructive nonspecific bowel gas pattern. Tracy rgical clips are seen in the gallbladder fossa. IMPRESSION: Likely impacted stool is noted in the rectum.
[2017-09-15] MEDS: AMMONIUM LACTATE 12% LOTION 225 GM BTL TOPICAL SCH (20:22)
[2017-09-15] MEDS: ATORVASTATIN 10 MG TAB PO SCH (20:22)
--- NOTE | 2017-09-16 00:38 | PN ---
PROGRESS NOTE DATE OF SERVICE: September 15, 2017. ATTENDING NOTE: Patient seen and examined by me. Discussed with nurse practitioner Ms. Winn. This is a patient admitted with sepsis from urinary tract infection. The patient is having some bowel retention causing some abdominal discomfort. Did tolerate some diet. PHYSICAL EXAMINATION: Afebrile. ABDOMEN: Soft. Minimal tenderness. No guarding, rigidity. BUN 14, creatinine 0.60. Urine culture growing Klebsiella pneumonia. ASSESSMENT: 1. Acute urinary tract infection from Klebsiella pneumonia causing sepsis present on admission. 2. Acute stool retention from severe constipation. PLAN: We will switch the patient's antibiotics to Keflex. Ordered a soap suds enema. Other medication to continue. MMODL / IJN: [id number] /
[2017-09-16] MEDS: PANTOPRAZOLE 40 MG TABLET PO SCH (06:19)
[2017-09-16] MEDS: LEVOTHYROXINE 75 MCG TAB PO SCH (06:19)
[2017-09-16] MEDS: lamoTRIgine 100 MG TAB PO SCH ×2 (06:20→17:52)
[2017-09-16] MEDS: carBAMazepine 300 MG CPMP.12HR PO SCH ×2 (10:34→21:01)
[2017-09-16] MEDS: CEPHALEXIN 250 MG CAP PO SCH ×4 (10:35→21:01)
[2017-09-16] MEDS: MEMANTINE 10 MG TAB PO SCH ×2 (10:36→21:01)
[2017-09-16] MEDS: DIPYRIDAMOLE-ASPIRIN 200-25 MG 1 EACH CPMP.12HR PO SCH ×2 (10:36→17:51)
[2017-09-16] MEDS: LACTULOSE 20 GM/30 ML CUP PO SCH ×2 (10:37→21:05)
[2017-09-16] MEDS: DOXAZOSIN 2 MG TAB PO SCH (10:37)
[2017-09-16] MEDS: METOPROLOL TARTRATE 25 MG TAB PO SCH ×2 (10:38→21:01)
[2017-09-16] MEDS: VALPROIC ACID ORAL SOLN 250 MG/5 ML CUP PO SCH ×2 (10:38→21:05)
[2017-09-16] MEDS: DULoxetine HCL 20 MG CAPSULE.DR PO SCH (10:38)
[2017-09-16] MEDS: SIMETHICONE 80 MG CHEWABLE PO SCH ×3 (10:39→17:52)
[2017-09-16] MEDS: FOLIC ACID 1 MG TAB PO SCH (12:18)
[2017-09-16] MEDS: LACTATED RINGERS 1,000 ML IV SCH ×2 (15:17→21:10)
--- NOTE | 2017-09-16 17:14 | P.PN ---
Progress Note - Text Progress Note Date: 09/16/17 DATE OF SERVICE: 09/16/2017 PRESENTING COMPLAINT: Fever/urosepsis HISTORY OF PRESENT ILLNESS: 72-year-old female resident of [facility] requires Troy lift at baseline able to answer some simple questions presented to the emergency department with fever. Initial diagnostics reveal extremely infected appearing urine and meeting sepsis criteria in the emergency department given a dose antibiotics and IV fluids. Admitted for the same. INTERVAL HISTORY: 09/16/2017: Lying in bed, no acute overnight events, vital signs stable, afebrile. No complaints of abdominal pain no tenderness, appetite is improving eating between 20 and 40% of her meals. Agreeable to drink juices and shakes. Answering more questions more conversant today. Last BM 09/16/2017. 09/15/2017: Lying in bed, no acute overnight events, vital signs stable, afebrile, complaining of abdominal pain this morning, has tenderness to palpation. Did not eat her breakfast due to stomach pains. Is able to answer a few more questions today. Last BM 09/13/2017. REVIEW OF SYSTEMS: Done for constitutional ,cardiovascular, GI, pulmonary with relevant findings as above. CURRENT MEDICATIONS Acetaminophen, DuoNeb, Lipitor, Tums, carbamazepine, Keflex Aggrenox, Cardura, duloxetine, folic acid, Robitussin, Lac-Hydrin 12%, lactulose, Lamictal, Synthroid, Namenda, metoprolol tartrate, Narcan, Zofran, Protonix, simethicone, valproic acid. PHYSICAL EXAM VITAL SIGNS: Temperature 98.2, pulse 95, respiratory rate 18, blood pressure 144/71, oxygen saturation 95% on 3 L. GENERAL APPEARANCE: Lying in bed, pale tired appearing, not in distress. HENT: Normocephalic, JVD not raised. Mass not palpable. Oral cavity dry mucous membranes, external appearance of ears and nose normal. EYES:Pupils equal. Conjunctiva normal. RESPIRATORY: Respiratory effort normal. Lungs diminished to auscultation. CARDIOVASCULAR: First and second sounds normal. No edema. ABDOMEN: Soft. Liver and spleen not palpable. tenderness to palpation. No mass palpable. PSYCHIATRY: Unable to assess able only to answer simple questions, mood and affect somewhat low. NEUROLOGICAL: Takes time to speak then speaks a few words. Dysarthric. Able to lift both of her arms. Unable to lift legs, bilateral foot drop. Left hand has a contracture. INVESTIGATIONS: LABS: BMP unremarkable. ASSESSMENT: -Acute urinary tract infection with Klebsiella pneumoniae causing sepsis, present on admission, improving -Acute stool retention from severe constipation, improving -Paroxysmal atrial fibrillation, currently in sinus rhythm. -Chronic congestive heart failure, ejection fraction not known. -Alzheimer's dementia, late onset type. -Hypertension. -Hyperlipidemia. -Seizure disorder. -Hypothyroidism. -Bilateral foot drop. -Chronic urinary incontinence. -Depression not otherwise specified. -Chronic osteopenia. -Chronic medical debility, at her baseline uses a Troy lift. -Chronic dysarthria, likely from underlying old stroke. -Possible acute renal failure, could be prerenal from decreased oral intake, resolved -CODE STATUS DO NOT RESUSCITATE PLAN: Continue to encourage oral intake, antibiotic switched to oral, discharge planning for the next 24 hours, back to [facility]. Plan of care discussed at the bedside we will follow closely. DIESEL TRUCK TECHNICIAN statement: Patient was seen and examined by nurse practitioner Jacy Winn and all elements of the case discussed with attending Dr. Murcia
[2017-09-16] MEDS: ATORVASTATIN 10 MG TAB PO SCH (21:01)
[2017-09-16] MEDS: AMMONIUM LACTATE 12% LOTION 225 GM BTL TOPICAL SCH (21:10)
--- NOTE | 2017-09-16 22:03 | PN ---
PROGRESS NOTE DATE OF SERVICE: 09/16/2017. ATTENDING NOTE: The patient was seen and examined by me. Discussed with nurse practitioner, Ms. Winn. The patient is doing much better, tolerating a diet. Had a good bowel movement with enema. PHYSICAL EXAMINATION: Afebrile, blood pressure 144/71. ABDOMEN: Soft, nontender. NEUROLOGIC: The patient is communicating. INVESTIGATIONS: Creatinine down from 1.3 to 0.6. ASSESSMENT: 1. Acute urinary tract infection from Klebsiella pneumonia causing sepsis on presentation, now clinically improved. 2. Acute stool retention from severe constipation, responded well to laxative. 3. Acute renal failure, likely prerenal, resolved. PLAN: Patient is doing well. Should be able [facility] MMALLYNL / IJN: [id number] /
[2017-09-17] MEDS: lamoTRIgine 100 MG TAB PO SCH (06:41)
[2017-09-17] MEDS: LEVOTHYROXINE 75 MCG TAB PO SCH (06:41)
[2017-09-17] MEDS: PANTOPRAZOLE 40 MG TABLET PO SCH (06:41)
[2017-09-17] MEDS: DOXAZOSIN 2 MG TAB PO SCH (09:20)
[2017-09-17] MEDS: DIPYRIDAMOLE-ASPIRIN 200-25 MG 1 EACH CPMP.12HR PO SCH (09:20)
[2017-09-17] MEDS: carBAMazepine 300 MG CPMP.12HR PO SCH (09:20)
[2017-09-17] MEDS: CEPHALEXIN 250 MG CAP PO SCH ×2 (09:20→12:49)
[2017-09-17] MEDS: DULoxetine HCL 20 MG CAPSULE.DR PO SCH (09:21)
[2017-09-17] MEDS: LACTULOSE 20 GM/30 ML CUP PO SCH (09:21)
[2017-09-17] MEDS: MEMANTINE 10 MG TAB PO SCH (09:21)
[2017-09-17] MEDS: SIMETHICONE 80 MG CHEWABLE PO SCH ×2 (09:22→12:50)
[2017-09-17] MEDS: VALPROIC ACID ORAL SOLN 250 MG/5 ML CUP PO SCH (09:22)
[2017-09-17] MEDS: METOPROLOL TARTRATE 25 MG TAB PO SCH (09:23)
[2017-09-17 11:27] VITALS: RESP 20
[2017-09-17] MEDS: FOLIC ACID 1 MG TAB PO SCH (12:49)
--- NOTE | 2017-09-17 15:51 | P.DS ---
Providers Date of admission: 09/15/17 12:46 Expected date of discharge: 09/17/17 Attending physician: Theodore Murcia Primary care physician: Luiz Ortiz Hospital Course: FINAL DIAGNOSES: -Acute urinary tract infection with Klebsiella pneumoniae causing sepsis, present on admission, improving -Acute stool retention from severe constipation, improving -Paroxysmal atrial fibrillation, currently in sinus rhythm. -Chronic congestive heart failure, ejection fraction not known. -Alzheimer's dementia, late onset type. -Essential Hypertension. -Hyperlipidemia. -Seizure disorder. -Hypothyroidism. -Bilateral foot drop. -Chronic urinary incontinence. -Depression not otherwise specified. -Chronic osteopenia. -Chronic medical debility, at her baseline uses a Troy lift. -Chronic dysarthria, likely from underlying old stroke. -Possible acute renal failure, could be prerenal from decreased oral intake, resolved -CODE STATUS DO NOT RESUSCITATE HOSPTIAL COURSE: 72-year-old female resident of [facility] requiring Troy lift and legally blind at baseline presented to the emergency department with fever found to have an infected urine causing sepsis admitted for the same. Home medications reordered, IV fluids initiated antibiotics started. Urine culture sent found to have Klebsiella pneumoniae. Antibiotics adjusted. Complained of abdominal pain Found to have severe constipation received soapsuds enema with good results. Overall condition improved, tolerating her diet with set up assistance and encouragement, requires a lift for transferring primarily bed and Wheelchair bound. Last BM 09/16/2017. Condition stabilized and patient is appropriate for discharge back to [facility]. PHYSICAL EXAM: CARDIOVASCULAR: Irregular rhythm no edema RESPIRATORY: Respiratory effort normal lung sounds diminished bilaterally. GI: Abdomen soft nontender liver and spleen not palpable MUSCULOSKELETAL: Able to move upper extremities unable to lift lower extremities off the bed this is her baseline NEUROLOGIC: Takes time to speak a few words, some dysarthria in both arms and able to lift legs bilateral foot drop left hand has a contracture. Patient was seen and examined by nurse practitioner Jacy Winn in all elements of the case discussed with attending Dr. Murcia DISPOSITION: [facility] Patient Condition at Discharge: Stable Plan - Discharge Summary Discharge Rx Participant: No New Discharge Prescriptions: New Cephalexin [Keflex] 250 mg PO QID #8 cap Dipyridamole-Aspirin 200-25 mg [Aggrenox 25MG -200MG] 1 each PO BID@0900, 1700 cpmp.12hr Continue Simethicone [Gas-X] 125 mg PO PC-TID@,, Metoprolol Tartrate [Lopressor] 25 mg PO Q12H Memantine [Namenda] 10 mg PO Q12H lamoTRIgine [LaMICtal] 150 mg PO Q12H carBAMazepine [Carbatrol] 300 mg PO BID@0900,2100 Simvastatin [Zocor] 10 mg PO HS@2100 Omeprazole [PriLOSEC] 20 mg PO BID@0600,1700 Folic Acid 1 mg PO DAILY@0900 Doxazosin Mesylate 2 mg PO DAILY@0900 Potassium Chloride [Klor-Con 20] 20 meq PO DAILY@0900 Lactulose [Cephulac] 15 100ml.bag PO Q12HR Ipratropium-Albuterol Nebulize [Duoneb 0.5 mg-3 mg/3 ml Soln] 3 ml INHALATION RT-Q4H PRN PRN Reason: Cough Levothyroxine Sodium [Synthroid] 75 mcg PO DAILY@0600 Valproic Acid [Depakene] 500 mg PO Q12H Calcium Carbonate [Tums] 500 mg PO Q6H PRN PRN Reason: Indigestion Acetaminophen Tab [Tylenol] 650 mg PO Q4H PRN PRN Reason: Pain guaiFENesin-DM 100-10MG/5ML [Robitussin DM] 10 ml PO Q6HR PRN PRN Reason: Cough Mag Hydrox/Al Hydrox/Simeth [Maalox] 30 ml PO Q4HR PRN PRN Reason: Gi Upset Bismuth Subsalicylate [Pepto-Bismol] 30 ml PO Q4HR PRN PRN Reason: Diarrhea Ammonium Lactate Lotion [Lac-Hydrin 12% Lotion] 1 applic TOPICAL HS guaiFENesin [guaiFENesin Oral Solution] 200 mg PO Q4H PRN PRN Reason: Cough Ensure Clear 120 ml PO TID@,, DULoxetine HCL [Cymbalta] 20 mg PO DAILY@0900 Discontinued Dipyridamole-Aspirin 200-25 mg [Aggrenox 25MG -200MG] 1 tab PO BID@0900,1700 Discharge Medication List Doxazosin Mesylate 2 mg PO DAILY@0900 06/30/14 [History] Folic Acid 1 mg PO DAILY@0900 06/30/14 [History] Memantine [Namenda] 10 mg PO Q12H 06/30/14 [History] Metoprolol Tartrate [Lopressor] 25 mg PO Q12H 06/30/14 [History] Omeprazole [PriLOSEC] 20 mg PO BID@0600,1700 06/30/14 [History] Simethicone [Gas-X] 125 mg PO PC-TID@,,18 06/30/14 [History] Simvastatin [Zocor] 10 mg PO HS@2100 06/30/14 [History] carBAMazepine [Carbatrol] 300 mg PO BID@0900,209906/30/14 [History] lamoTRIgine [LaMICtal] 150 mg PO Q12H 06/30/14 [History] Lactulose [Cephulac] 15 100ml.bag PO Q12HR 11/03/14 [History] Potassium Chloride [Klor-Con 20] 20 meq PO DAILY@0900 11/03/14 [History] Ipratropium-Albuterol Nebulize [Duoneb 0.5 mg-3 mg/3 ml Soln] 3 ml INHALATION RT -Q4H PRN 11/20/14 [History] Acetaminophen Tab [Tylenol] 650 mg PO Q4H PRN 11/03/16 [History] Bismuth Subsalicylate [Pepto-Bismol] 30 ml PO Q4HR PRN 11/03/16 [History] Calcium Carbonate [Tums] 500 mg PO Q6H PRN 11/03/16 [History] Levothyroxine Sodium [Synthroid] 75 mcg PO DAILY@0600 11/03/16 [History] Mag Hydrox/Al Hydrox/Simeth [Maalox] 30 ml PO Q4HR PRN 11/03/16 [History] Valproic Acid [Depakene] 500 mg PO Q12H 11/03/16 [History] guaiFENesin-DM 100-10MG/5ML [Robitussin DM] 10 ml PO Q6HR PRN 11/03/16 [History] Ammonium Lactate Lotion [Lac-Hydrin 12% Lotion] 1 applic TOPICAL HS 09/13/17 [ History] DULoxetine HCL [Cymbalta] 20 mg PO DAILY@0900 09/13/17 [History] Ensure Clear 120 ml PO TID@09,13,21 09/13/17 [History] guaiFENesin [guaiFENesin Oral Solution] 200 mg PO Q4H PRN 09/13/17 [History] Cephalexin [Keflex] 250 mg PO QID #8 cap 09/17/17 [Rx] Dipyridamole-Aspirin 200-25 mg [Aggrenox 25MG -200MG] 1 each PO BID@0900,1700 cpmp.12hr 09/17/17 [Rx] Follow up Appointment(s)/Referral(s): Luiz Ortiz MD [Primary Care Provider] - 09/18/17 [facility], [NON-STAFF] - As Needed Activity/Diet/Wound Care/Special Instructions: Dysphagia chopped with gravy requires feeding assistance, patient is blind. BED BOUND, TURN Q 2 HRS, INCONTINENT, TOTAL CARE Discharge Disposition: TRANSFER TO SNF/ECF
[2017-09-17 15:53] VITALS: BP 135/61; PULSE 69; TEMP 98
--- NOTE | 2017-09-24 19:26 | DS ---
DISCHARGE SUMMARY DATE OF SERVICE: 09/17/2017 ATTENDING NOTE: This patient was seen and examined by me. I discussed the case with the nurse practitioner Ms. Winn. Patient is doing well, tolerating her diet. On examination, lungs are clear. CARDIOVASCULAR: First and second sounds normal. Patient is stable to be discharged. Follow with Dr. Ortiz. [facility] / BHARGAVI: [id number] /
== END 2017-09-17 16:45 | DRG 872 ==
LOC: EC 14:32 → INTOOBSV 16:50 → 6SEL 16:50 → OBSVTOIN 09-15 12:46
PROVIDERS: ADMIT Hospitalist; ATTEND Hospitalist
DX: A41.50 Gram-negative sepsis, unspecified (principal); N17.9 Acute kidney failure, unspecified; G20 Parkinson's disease; I11.0 Hypertensive heart disease with heart failure; G40.909 Epilepsy, unspecified, not intractable, without status epilepticus; I48.0 Paroxysmal atrial fibrillation; I50.9 Heart failure, unspecified; E03.9 Hypothyroidism, unspecified; E78.5 Hyperlipidemia, unspecified; E88.9 Metabolic disorder, unspecified; N39.0 Urinary tract infection, site not specified; F32.9 Major depressive disorder, single episode, unspecified; G30.1 Alzheimer's disease with late onset; F02.80 Dementia in other diseases classified elsewhere, unspecified severity, without behavioral disturbance, psychotic disturbance, mood disturbance, and anxiety; B96.1 Klebsiella pneumoniae [K. pneumoniae] as the cause of diseases classified elsewhere; H54.8 Legal blindness, as defined in USA; I25.10 Atherosclerotic heart disease of native coronary artery without angina pectoris; K59.00 Constipation, unspecified; M21.371 Foot drop, right foot; M21.372 Foot drop, left foot; M81.0 Age-related osteoporosis without current pathological fracture; R32 Unspecified urinary incontinence; I69.922 Dysarthria following unspecified cerebrovascular disease; R74.8 Abnormal levels of other serum enzymes; Z66 Do not resuscitate; Z74.01 Bed confinement status; Z79.899 Other long term (current) drug therapy; Z99.3 Dependence on wheelchair; Z86.14 Personal history of Methicillin resistant Staphylococcus aureus infection; Z88.1 Allergy status to other antibiotic agents; Z88.5 Allergy status to narcotic agent
CPT/HCPCS: 36415; 71045; 74019; 80048; 80053; 81001; 83605; 84484; 85025; 85610; 85730; 87040; 87077; 87086; 87186; 87324; 87502; 93005; 94640; 96360; 96361; 99285

== ENCOUNTER 2018-03-23 15:06 | Inpatient (IN) | payer MEDICARE, OTHER ==
[2018-03-23] MEDS ORDERED: SODIUM CHLORIDE 0.9% 1,000 ML IV STA ×2 (15:08→16:16)
[2018-03-23 15:46] LABS: Basophils % (A) 0 %; Eosinophils # (A) 0.1 k/uL (0-0.7); Eosinophils % (A) 1 %; HCT 39.2 % (34.0-46.0); HGB 12.1 gm/dL (11.4-16.0); Hypochromasia Moderate; Lymphocytes # (A) 0.6 k/uL (1.0-4.8); Lymphocytes % (A) 10 %; MCH 31.5 pg (25.0-35.0); MCHC 30.9 g/dL (31.0-37.0); Macrocytosis Slight; Mean Platelet Volume 6.7; Monocytes # (A) 0.5 k/uL (0-1.0); Monocytes % (A) 7 %; Neutrophils % (A) 80 %; Platelet Count 275 k/uL (150-450); RBC 3.85 m/uL (3.80-5.40); RDW 14.4 % (11.5-15.5); WBC 6.3 k/uL (3.8-10.6)
--- NOTE | 2018-03-23 15:55 | CT ---
EXAMINATION TYPE: CT brain wo con DATE OF EXAM: 03/23/2018 HISTORY: Weakness per order. CT DLP: 1047.1 mGycm. Automated Exposure Control for Dose Reduction was Utilized. TECHNIQUE: CT scan of the head is performed without contrast. COMPARISON: CT brain November 04, 2014. FINDINGS: There is no acute intracranial hemorrhage or midline shift identified. There is diffuse v entricular and sulcal prominence consistent with diffuse age-related cerebral atrophy. Degree of vent ricular prominence is out of proportion to degree of sulcal effacement and a normal pressure hydrocep halus is not excluded though there is no significant change in ventricular size noted from prior CT. There is low-attenuation in the periventricular white matter consistent with chronic small vessel isc hemic change. Hyperostosis frontalis is seen. Vascular calcification distal internal carotid arteri es bilaterally is redemonstrated. Paranasal sinuses are grossly clear currently. Scleral calcificatio n both globes is present. IMPRESSION: No acute intracranial hemorrhage or midline shift. There is moderate to severe diffuse age-related cerebral atrophy and mild chronic small vessel ischemic change redemonstrated. No signif icant change from prior CT.
--- NOTE | 2018-03-23 15:57 | XR ---
EXAMINATION TYPE: XR chest 2V DATE OF EXAM: 03/23/2018 COMPARISON: Chest x-ray September 13, 2017 HISTORY: History of atrial fibrillation and coronary artery disease with weakness. TECHNIQUE: Frontal and lateral views of the chest are obtained. FINDINGS: The osseous structures are demineralized. Cardiomegaly is redemonstrated. Low lung volumes with elevated right hemidiaphragm is again seen. There is persistent right basilar opacity. There is no new focal airspace opacity, pleural effusion, or pneumothorax identified. IMPRESSION: Cardiomegaly and low lung volumes with persistent right basilar scarring and/or atelecta sis. No new infiltrate is seen.
[2018-03-23 15:59] LABS: INR 1.3 (<1.2); Partial Thromboplastin Time 22.7 sec (22.0-30.0)
--- NOTE | 2018-03-23 16:02 | ED ---
General Adult HPI - General Chief complaint: Altered Mental Status Stated complaint: ALTERED MENTAL STATUS Time Seen by Provider: 03/23/18 15:08 Source: EMS, RN notes reviewed, old records reviewed Mode of arrival: EMS Limitations: altered mental status, physical limitation - History of Present Illness Initial comments: This is a 72-year-old female the ER for evaluation. Patient unable to give history secondary to clinical condition. Patient per staff and transfer facility is unable to give history and regular basis. Patient's transfer paperwork and EMS Ur consulted regarding patient's condition. Patient was sent in for evaluation regarding change in mental state - Related Data Home Medications Medication Instructions Recorded Confirmed Doxazosin Mesylate 2 mg PO DAILY@0906/30/14 03/23/18 Folic Acid 1 mg PO DAILY@0906/30/14 03/23/18 Memantine [Namenda] 10 mg PO Q12H 06/30/14 03/23/18 Metoprolol Tartrate [Lopressor] 25 mg PO Q12H 06/30/14 03/23/18 Omeprazole [PriLOSEC] 20 mg PO DAILY@0600 06/30/14 03/23/18 Simethicone [Gas-X] 125 mg PO PC-TID@,,06/30/14 03/23/18 Simvastatin [Zocor] 10 mg PO HS@209906/30/14 03/23/18 carBAMazepine [Carbatrol] 300 mg PO BID@0900,2100 06/30/14 03/23/18 lamoTRIgine [LaMICtal] 150 mg PO Q12H 06/30/14 03/23/18 Lactulose [Cephulac] 10 mg PO Q12HR 11/03/14 03/23/18 Potassium Chloride [Klor-Con 20] 20 meq PO DAILY@0900 11/03/14 03/23/18 Ipratropium-Albuterol Nebulize 3 ml INHALATION RT-Q4H PRN 11/20/14 03/23/18 [Duoneb 0.5 mg-3 mg/3 ml Soln] Acetaminophen Tab [Tylenol] 650 mg PO Q4H PRN 11/03/16 03/23/18 Calcium Carbonate [Tums] 500 mg PO Q6H PRN 11/03/16 03/23/18 Levothyroxine Sodium [Synthroid] 75 mcg PO DAILY@0600 11/03/16 03/23/18 Valproic Acid [Depakene] 500 mg PO Q12H 11/03/16 03/23/18 guaiFENesin-DM 100-10MG/5ML 10 ml PO Q6HR PRN 11/03/16 03/23/18 [Robitussin DM] Ammonium Lactate Lotion 1 applic TOPICAL HS 09/13/17 03/23/18 [Lac-Hydrin 12% Lotion] DULoxetine HCL [Cymbalta] 20 mg PO DAILY@0900 09/13/17 03/23/18 Ensure Clear 120 ml PO TID@09,13,21 09/13/17 03/23/18 guaiFENesin [guaiFENesin Oral 200 mg PO Q4H PRN 09/13/17 03/23/18 Solution] Bismuth Subsalicylate 524 mg PO Q4HR PRN 03/23/18 03/23/18 [Pepto-Bismol] Dipyridamole-Aspirin 200-25 mg 1 tab PO BID@0900,1700 03/23/18 03/23/18 [Aggrenox 25MG -200MG] Furosemide [Lasix] 20 mg PO DAILY@0600 03/23/18 03/23/18 Allergies Allergy/AdvReac Type Severity Reaction Status Date / Time Cephalosporins Allergy Unknown Verified 03/23/18 15:14 erythromycin lactobionate Allergy Unknown Verified 03/23/18 15:14 [From Erythrocin] propoxyphene napsylate Allergy Unknown Verified 03/23/18 15:14 [From Darvocet-N 100] Review of Systems ROS Statement: Those systems with pertinent positive or pertinent negative responses have been documented in the HPI. ROS Other: All systems not noted in ROS Statement are negative. Past Medical History Past Medical History: Atrial Fibrillation, Coronary Artery Disease (CAD), Heart Failure, CVA/TIA, Dementia, Eye Disorder, Hyperlipidemia, Hypertension, Musculoskeletal Disorder, Neurologic Disorder, Pneumonia, Seizure Disorder, Thyroid Disorder Additional Past Medical History / Comment(s): past ileus,HX OF METABOLIC ENCEPHALOPATHY, SEPSIS., LEGALLY BLIND, PARKINSONS, OSTEOPOROSIS, DEMENTIA, DELAYED DEVELOPMENT,. plasma protein metabolic disorder, unspecified disease of pericardium, SOME EDEMA LOWER EXTREMITIES, UNKNOWN DATE OF LAST SEIZURE. , HYPOTHYOID, UTI'S,ANEMIA, HEART DISEASE, CONTRACTURE LT HAND WITH FINGER DIGGING INTO PALM, , NAUSEATED EASILY.,INCONTINENT. URINE & STOOL- WEARS ATTENDS. , ALLAN LIFT, UNABLE TO STAND. History of Any Multi-Drug Resistant Organisms: MRSA Date of last positivie culture/infection: 06/24/14 MDRO Source:: Left First Toe Past Surgical History: Orthopedic Surgery Additional Past Surgical History / Comment(s): RT. ANKLE, EYES, 11/06/14 PEG TUBE , FLEXOR TENDON RELEASE SURGERIES FOR FINGER CONTRACTURES., CLOSED REDUCTION PERCUANEOUS PINNING LEFT MIDDLE FINGER.( 09/06/16) Past Anesthesia/Blood Transfusion Reactions: Unable to Obtain Additional Past Anesthesia/Blood Transfusion Reaction / Comment(s): UNKNOWN- PT @ [facility] [place] Past Psychological History: Depression Smoking Status: Never smoker Past Alcohol Use History: None Reported Past Drug Use History: None Reported - Past Family History Father Family Medical History: Unable to Obtain Additional Family Medical History / Comment(s): . Mother Family Medical History: Unable to Obtain Additional Family Medical History / Comment(s): . General Exam Limitations: altered mental status, physical limitation General appearance: alert, in no apparent distress Head exam: Present: atraumatic, normocephalic, normal inspection Eye exam: Present: normal appearance, PERRL, EOMI. Absent: scleral icterus, conjunctival injection, periorbital swelling ENT exam: Present: normal exam, mucous membranes moist Neck exam: Present: normal inspection. Absent: tenderness, meningismus, lymphadenopathy Respiratory exam: Present: normal lung sounds bilaterally. Absent: respiratory distress, wheezes, rales, rhonchi, stridor Cardiovascular Exam: Present: regular rate, normal rhythm, normal heart sounds. Absent: systolic murmur, diastolic murmur, rubs, gallop, clicks GI/Abdominal exam: Present: soft, normal bowel sounds. Absent: distended, tenderness, guarding, rebound, rigid Extremities exam: Present: normal inspection, full ROM, normal capillary refill. Absent: tenderness, pedal edema, joint swelling, calf tenderness Back exam: Present: normal inspection Neurological exam: Present: alert, oriented X3, CN II-XII intact Psychiatric exam: Present: normal affect, normal mood Skin exam: Present: warm, dry, intact, normal color. Absent: rash Course Vital Signs 03/23/18 03/23/18 03/23/18 15:08 16:33 17:28 Temperature 98 F Pulse Rate 87 91 95 Respiratory 18 18 20 Rate Blood Pressure 140/65 136/63 155/67 O2 Sat by Pulse 93 L 98 98 Oximetry - Reevaluation(s) Reevaluation #1: 03/23/18 16:10 patient's medical record here is reviewed EKG Findings - EKG Comments: EKG Findings:: EKG shows A. fib rate of 90, QRS 96, QTc 452 Medical Decision Making - Medical Decision Making 72 female brought to ER for evaluation of altered mental status, positive urinary tract infection, will admit for IV antibiotics - Lab Data Result diagrams: 03/23/18 15:16 03/23/18 15:16 Lab Results 03/23/18 03/23/18 03/23/18 Range/Units 15:16 15:16 15:16 WBC 6.3 (3.8-10.6) k/uL RBC 3.85 (3.80-5.40) m/uL Hgb 12.1 (11.4-16.0) gm/dL Hct 39.2 (34.0-46.0) % MCV 102.0 H (80.0-100.0) fL MCH 31.5 (25.0-35.0) pg MCHC 30.9 L (31.0-37.0) g/dL RDW 14.4 (11.5-15.5) % Plt Count 275 (150-450) k/uL Neutrophils % 80 % Lymphocytes % 10 % Monocytes % 7 % Eosinophils % 1 % Basophils % 0 % Neutrophils # 5.0 (1.3-7.7) k/uL Lymphocytes # 0.6 L (1.0-4.8) k/uL Monocytes # 0.5 (0-1.0) k/uL Eosinophils # 0.1 (0-0.7) k/uL Basophils # 0.0 (0-0.2) k/uL Hypochromasia Moderate Macrocytosis Slight PT (9.0-12.0) sec INR (<1.2) APTT (22.0-30.0) sec Sodium 144 (137-145) mmol/L Potassium 5.0 (3.5-5.1) mmol/L Chloride 107 (98-107) mmol/L Carbon Dioxide 29 (22-30) mmol/L Anion Gap 8 mmol/L BUN 32 H (7-17) mg/dL Creatinine 0.54 (0.52-1.04) mg/dL Est GFR (CKD-EPI)AfAm >90 (>60 ml/min/1.73 sqM) Est GFR (CKD-EPI)NonAf >90 (>60 ml/min/1.73 sqM) Glucose 108 H (74-99) mg/dL Plasma Lactic Acid Junior (0.7-2.0) mmol/L Calcium 9.4 (8.4-10.2) mg/dL Phosphorus 4.0 (2.5-4.5) mg/dL Magnesium 2.3 (1.6-2.3) mg/dL Total Bilirubin 0.9 (0.2-1.3) mg/dL AST 19 (14-36) U/L ALT 19 (9-52) U/L Alkaline Phosphatase 191 H (38-126) U/L Total Creatine Kinase <20 L (30-135) U/L CK-MB (CK-2) 0.6 (0.0-2.4) ng/mL CK-MB (CK-2) Rel Index Troponin I <0.012 (0.000-0.034) ng/mL Total Protein 7.1 (6.3-8.2) g/dL Albumin 3.4 L (3.5-5.0) g/dL TSH 3.070 (0.465-4.680) mIU/L Urine Color Urine Appearance (Clear) Urine pH (5.0-8.0) Ur Specific Mason (1.001-1.035) Urine Protein (Negative) Urine Glucose (UA) (Negative) Urine Ketones (Negative) Urine Blood (Negative) Urine Nitrite (Negative) Urine Bilirubin (Negative) Urine Urobilinogen (<2.0) mg/dL Ur Leukocyte Esterase (Negative) Urine RBC (0-5) /hpf Urine WBC (0-5) /hpf Ur Squamous Epith Cells (0-4) /hpf Amorphous Sediment (None) /hpf Urine Bacteria (None) /hpf Hyaline Casts (0-2) /lpf Urine Mucus (None) /hpf 03/23/18 03/23/18 03/23/18 Range/Units 15:16 15:16 16:15 WBC (3.8-10.6) k/uL RBC (3.80-5.40) m/uL Hgb (11.4-16.0) gm/dL Hct (34.0-46.0) % MCV (80.0-100.0) fL MCH (25.0-35.0) pg MCHC (31.0-37.0) g/dL RDW (11.5-15.5) % Plt Count (150-450) k/uL Neutrophils % % Lymphocytes % % Monocytes % % Eosinophils % % Basophils % % Neutrophils # (1.3-7.7) k/uL Lymphocytes # (1.0-4.8) k/uL Monocytes # (0-1.0) k/uL Eosinophils # (0-0.7) k/uL Basophils # (0-0.2) k/uL Hypochromasia Macrocytosis PT 12.0 (9.0-12.0) sec INR 1.3 H (<1.2) APTT 22.7 (22.0-30.0) sec Sodium (137-145) mmol/L Potassium (3.5-5.1) mmol/L Chloride (98-107) mmol/L Carbon Dioxide (22-30) mmol/L Anion Gap mmol/L BUN (7-17) mg/dL Creatinine (0.52-1.04) mg/dL Est GFR (CKD-EPI)AfAm (>60 ml/min/1.73 sqM) Est GFR (CKD-EPI)NonAf (>60 ml/min/1.73 sqM) Glucose (74-99) mg/dL Plasma Lactic Acid Junior 1.3 (0.7-2.0) mmol/L Calcium (8.4-10.2) mg/dL Phosphorus (2.5-4.5) mg/dL Magnesium (1.6-2.3) mg/dL Total Bilirubin (0.2-1.3) mg/dL AST (14-36) U/L ALT (9-52) U/L Alkaline Phosphatase (38-126) U/L Total Creatine Kinase (30-135) U/L CK-MB (CK-2) (0.0-2.4) ng/mL CK-MB (CK-2) Rel Index Troponin I (0.000-0.034) ng/mL Total Protein (6.3-8.2) g/dL Albumin (3.5-5.0) g/dL TSH (0.465-4.680) mIU/L Urine Color Dark Brown Urine Appearance Cloudy H (Clear) Urine pH 5.5 (5.0-8.0) Ur Specific Mason 1.019 (1.001-1.035) Urine Protein Trace H (Negative) Urine Glucose (UA) Negative (Negative) Urine Ketones Negative (Negative) Urine Blood Negative (Negative) Urine Nitrite Negative (Negative) Urine Bilirubin 1+ H (Negative) Urine Urobilinogen 8.0 (<2.0) mg/dL Ur Leukocyte Esterase Negative (Negative) Urine RBC 2 (0-5) /hpf Urine WBC 1 (0-5) /hpf Ur Squamous Epith Cells 4 (0-4) /hpf Amorphous Sediment Rare H (None) /hpf Urine Bacteria Rare H (None) /hpf Hyaline Casts 1 (0-2) /lpf Urine Mucus Rare H (None) /hpf - Radiology Data Radiology results: report reviewed (CT brain is negative for acute disease), image reviewed Disposition Clinical Impression: Urinary tract infection, Altered mental status Disposition: ADMITTED IP TO THIS HOSP Condition: Fair Is patient prescribed a controlled substance at d/c from ED?: No
[2018-03-23 16:07] LABS: ALT 19 U/L (9-52); AST 19 U/L (14-36); Albumin 3.4 g/dL (3.5-5.0); Alkaline Phosphatase 191 U/L (38-126); Anion Gap 8 mmol/L; Blood Urea Nitrogen 32 mg/dL (7-17); Calcium 9.4 mg/dL (8.4-10.2); Carbon Dioxide 29 mmol/L (22-30); Chloride 107 mmol/L (98-107); Glucose 108 mg/dL (74-99); Magnesium 2.3 mg/dL (1.6-2.3); Sodium 144 mmol/L (137-145); Total Bilirubin 0.9 mg/dL (0.2-1.3); Total Protein 7.1 g/dL (6.3-8.2)
[2018-03-23 16:11] LABS: Creatine Kinase <20 U/L (30-135)
[2018-03-23] MEDS ORDERED: LEVOFLOXACIN 750MG-D5W PMX 750 MG in DEXTROSE/WATER 1 150ML.BAG IVPB STA (16:16)
[2018-03-23 16:25] LABS: Creatine Kinase MB 0.6 ng/mL (0.0-2.4); Troponin I <0.012 ng/mL (0.000-0.034)
[2018-03-23 16:45] LABS: Amorphous Sediment,Urine Rare /hpf; Appearance,Urine Cloudy (Clear); Bacteria,Urine Rare /hpf; Bilirubin,Urine 1+ (Negative); Blood,Urine Negative (Negative); Color,Urine Dark Brown; Glucose,Urine (UA) Negative (Negative); Hyaline Casts,Urine 1 /lpf (0-2); Ketones,Urine Negative (Negative); Leukocyte Esterase,Urine Negative (Negative); Mucus,Urine Rare /hpf; Nitrite,Urine Negative (Negative); PH, Urine 5.5 (5.0-8.0); Protein,Urine Trace (Negative); RBC,Urine 2 /hpf (0-5); Specific Gravity,Urine 1.019 (1.001-1.035); Squamous Epithelial Cell,Urine 4 /hpf (0-4); WBC,Urine 1 /hpf (0-5)
[2018-03-23] MEDS ORDERED: BISMUTH SUBSALICYLATE 4,192 MG/240 ML BOTTLE PO PRN (17:13)
[2018-03-23] MEDS ORDERED: IPRATROPIUM-ALBUTEROL 3 ML NEB INHALATION PRN (17:13)
[2018-03-23] MEDS ORDERED: CALCIUM CARBONATE 500 MG CHEWABLE PO PRN (17:13)
[2018-03-23] MEDS ORDERED: ACETAMINOPHEN TAB 325 MG TAB PO PRN (17:13)
[2018-03-23] MEDS ORDERED: guaiFENesin SYRUP 100MG/5ML 200 MG/10 ML CUP PO PRN (17:13)
[2018-03-23] MEDS: SIMETHICONE 80 MG CHEWABLE PO SCH (18:08)
[2018-03-23 20:07] VITALS: BMI 31.3
[2018-03-23] MEDS ORDERED: ENSURE CLEAR PO SCH (21:00)
[2018-03-23] MEDS: ATORVASTATIN 10 MG TAB PO SCH (21:29)
[2018-03-23] MEDS: LACTULOSE 20 GM/30 ML CUP PO SCH (21:29)
[2018-03-23] MEDS: VALPROIC ACID ORAL SOLN 250 MG/5 ML CUP PO SCH ×2 (21:41→22:22)
[2018-03-23] MEDS: carBAMazepine 300 MG CPMP.12HR PO SCH ×2 (21:41→22:22)
[2018-03-23] MEDS: MEMANTINE 10 MG TAB PO SCH ×2 (21:42→22:22)
[2018-03-23] MEDS: METOPROLOL TARTRATE 25 MG TAB PO SCH ×2 (21:42→22:22)
[2018-03-23] MEDS: AMMONIUM LACTATE 12% LOTION 225 GM BTL TOPICAL SCH (21:42)
[2018-03-23] MEDS: lamoTRIgine 100 MG TAB PO SCH ×2 (21:42→22:22)
[2018-03-24] MEDS: FUROSEMIDE 20 MG TAB PO SCH (05:50)
[2018-03-24] MEDS: LEVOTHYROXINE 75 MCG TAB PO SCH (05:50)
[2018-03-24] MEDS: PANTOPRAZOLE 40 MG TABLET PO SCH (05:50)
[2018-03-24] MEDS: DULoxetine HCL 20 MG CAPSULE.DR PO SCH (07:40)
[2018-03-24] MEDS: DIPYRIDAMOLE-ASPIRIN 200-25 MG 1 EACH CPMP.12HR PO SCH ×2 (07:40→15:29)
[2018-03-24] MEDS: DOXAZOSIN 2 MG TAB PO SCH (07:40)
[2018-03-24] MEDS: LACTULOSE 20 GM/30 ML CUP PO SCH ×2 (07:40→22:05)
[2018-03-24] MEDS: FOLIC ACID 1 MG TAB PO SCH (07:40)
[2018-03-24] MEDS: lamoTRIgine 100 MG TAB PO SCH ×2 (07:41→22:06)
[2018-03-24] MEDS: MEMANTINE 10 MG TAB PO SCH ×2 (07:42→22:06)
[2018-03-24] MEDS: POTASSIUM CHLORIDE ER 20 MEQ TAB.ER PO SCH (07:42)
[2018-03-24] MEDS: SIMETHICONE 80 MG CHEWABLE PO SCH ×3 (09:48→15:29)
--- NOTE | 2018-03-24 11:51 | P.HPIM ---
History of Present Illness H&P Date: 03/23/18 Chief Complaint: Altered mental status Patient is a 72-year-old female with a known history of paroxysmal atrial fibrillation, dementia, hypertension, hypothyroidism, hyperlipidemia, coronary artery disease, CVA/TIA, seizure disorder and Parkinson's disease as well as multiple medical problems was sent to Hospital from half-way due to altered mental status. Patient reported history due to underlying dementia and medical issues. Could not provide any history at this time. Otherwise patient is awake alert and he will ambulate stable and saturating well on room air. Patient was admitted to the hospital for possible urinary tract infection. Patient had recent hospital admission in September 2017. with urinary tract infection with Klebsiella as well as constipation. Otherwise patient is refusing to eat and says she is hungry. Patient denied any complaints of chest pain or shortness of breath. No abdominal pain. No nausea vomiting. EKG showed atrial fibrillation. Rate is controlled Chest x-ray showed cardiomegaly and chronic low lung volumes with persistent right basilar scarring and atelectasis. No new infiltrate seen. CT head showed no acute intracranial hemorrhage or midline shift. There is moderate to severe diffuse age-related cerebral atrophy and mild chronic small is an ischemic changes demonstrated. No significant change from prior CT. UA is cloudy but no leukocyte esterase and rare WBC count. Review of Systems Complete review of systems could not be obtained from the patient except as above Past Medical History Past Medical History: Atrial Fibrillation, Coronary Artery Disease (CAD), Heart Failure, CVA/TIA, Dementia, Eye Disorder, Hyperlipidemia, Hypertension, Musculoskeletal Disorder, Neurologic Disorder, Pneumonia, Seizure Disorder, Thyroid Disorder Additional Past Medical History / Comment(s): past ileus,HX OF METABOLIC ENCEPHALOPATHY, SEPSIS., LEGALLY BLIND, PARKINSONS, OSTEOPOROSIS, DEMENTIA, DELAYED DEVELOPMENT,. plasma protein metabolic disorder, unspecified disease of pericardium, SOME EDEMA LOWER EXTREMITIES, UNKNOWN DATE OF LAST SEIZURE. , HYPOTHYOID, UTI'S,ANEMIA, HEART DISEASE, CONTRACTURE LT HAND WITH FINGER DIGGING INTO PALM, , NAUSEATED EASILY.,INCONTINENT. URINE & STOOL- WEARS ATTENDS. , TROY LIFT, UNABLE TO STAND. History of Any Multi-Drug Resistant Organisms: MRSA Date of last positivie culture/infection: 06/24/14 MDRO Source:: Left First Toe Past Surgical History: Orthopedic Surgery Additional Past Surgical History / Comment(s): RT. ANKLE, EYES, 11/06/14 PEG TUBE , FLEXOR TENDON RELEASE SURGERIES FOR FINGER CONTRACTURES., CLOSED REDUCTION PERCUANEOUS PINNING LEFT MIDDLE FINGER.( 09/06/16) Past Anesthesia/Blood Transfusion Reactions: Unable to Obtain Additional Past Anesthesia/Blood Transfusion Reaction / Comment(s): UNKNOWN- PT @ [facility] [address] Past Psychological History: Depression Smoking Status: Never smoker Past Alcohol Use History: None Reported Past Drug Use History: None Reported - Past Family History Father Family Medical History: Unable to Obtain Additional Family Medical History / Comment(s): . Mother Family Medical History: Unable to Obtain Additional Family Medical History / Comment(s): . Medications and Allergies Home Medications Medication Instructions Recorded Confirmed Type Doxazosin Mesylate 2 mg PO DAILY@0900 06/30/14 03/23/18 History Folic Acid 1 mg PO DAILY@0900 06/30/14 03/23/18 History Memantine [Namenda] 10 mg PO Q12H 06/30/14 03/23/18 History Metoprolol Tartrate [Lopressor] 25 mg PO Q12H 06/30/14 03/23/18 History Omeprazole [PriLOSEC] 20 mg PO DAILY@0600 06/30/14 03/23/18 History Simethicone [Gas-X] 125 mg PO PC-TID@,,06/30/14 03/23/18 History Simvastatin [Zocor] 10 mg PO HS@2100 06/30/14 03/23/18 History carBAMazepine [Carbatrol] 300 mg PO BID@0900,2100 06/30/14 03/23/18 History lamoTRIgine [LaMICtal] 150 mg PO Q12H 06/30/14 03/23/18 History Lactulose [Cephulac] 10 mg PO Q12HR 11/03/14 03/23/18 History Potassium Chloride [Klor-Con 20] 20 meq PO DAILY@0900 11/03/14 03/23/18 History Ipratropium-Albuterol Nebulize 3 ml INHALATION RT-Q4H PRN 11/20/14 03/23/18 History [Duoneb 0.5 mg-3 mg/3 ml Soln] Acetaminophen Tab [Tylenol] 650 mg PO Q4H PRN 11/03/16 03/23/18 History Calcium Carbonate [Tums] 500 mg PO Q6H PRN 11/03/16 03/23/18 History Levothyroxine Sodium [Synthroid] 75 mcg PO DAILY@0600 11/03/16 03/23/18 History Valproic Acid [Depakene] 500 mg PO Q12H 11/03/16 03/23/18 History guaiFENesin-DM 100-10MG/5ML 10 ml PO Q6HR PRN 11/03/16 03/23/18 History [Robitussin DM] Ammonium Lactate Lotion 1 applic TOPICAL HS 09/13/17 03/23/18 History [Lac-Hydrin 12% Lotion] DULoxetine HCL [Cymbalta] 20 mg PO DAILY@0900 09/13/17 03/23/18 History Ensure Clear 120 ml PO TID@09,13,21 09/13/17 03/23/18 History guaiFENesin [guaiFENesin Oral 200 mg PO Q4H PRN 09/13/17 03/23/18 History Solution] Bismuth Subsalicylate 524 mg PO Q4HR PRN 03/23/18 03/23/18 History [Pepto-Bismol] Dipyridamole-Aspirin 200-25 mg 1 tab PO BID@0900,1700 03/23/18 03/23/18 History [Aggrenox 25MG -200MG] Furosemide [Lasix] 20 mg PO DAILY@0600 03/23/18 03/23/18 History Allergies Allergy/AdvReac Type Severity Reaction Status Date / Time Cephalosporins Allergy Unknown Verified 03/23/18 15:14 erythromycin lactobionate Allergy Unknown Verified 03/23/18 15:14 [From Erythrocin] propoxyphene napsylate Allergy Unknown Verified 03/23/18 15:14 [From Darvocet-N 100] Physical Exam Vitals: Vital Signs Temp Pulse Resp BP Pulse Ox 03/23/18 16:33 91 18 136/63 98 03/23/18 15:08 98 F 87 18 140/65 93 L Intake and Output 03/23/18 03/23/18 03/23/18 06:59 14:59 22:59 Other: Weight 90.718 kg PHYSICAL EXAMINATION: Patient is lying in the bed comfortably, no acute distress, awake alert but cannot provide history. HEENT: Normocephalic. Neck is supple. Pupils reactive. Legally blind. Nostrils clear. Oral cavity is moist. Ears reveal no drainage. Neck reveals no JVD, carotid bruits, or thyromegaly. CHEST EXAMINATION: Trachea is central. Symmetrical expansion. Bibasilar diminished air entry. Lung gleason clear to auscultation and percussion. CARDIAC: Normal S1, S2 with no gallops. No murmurs ABDOMEN: Soft. Bowel sounds normal. No organomegaly. No abdominal bruits. Extremities: reveal no edema. No clubbing or cyanosis Neurologically awake, alert, oriented x1 . Able to move all extremities. Skin: No rash or skin lesions. Psychiatric: Coperative. Could not be assessed Musculoskeletal: No joint swelling or deformity. Normal range of motion. Results CBC & Chem 7: 03/23/18 15:16 03/23/18 15:16 Labs: Abnormal Lab Results - Last 24 Hours (Table) 03/23/18 03/23/18 03/23/18 Range/Units 15:16 15:16 15:16 MCV 102.0 H (80.0-100.0) fL MCHC 30.9 L (31.0-37.0) g/dL Lymphocytes # 0.6 L (1.0-4.8) k/uL INR (<1.2) BUN 32 H (7-17) mg/dL Glucose 108 H (74-99) mg/dL Alkaline Phosphatase 191 H (38-126) U/L Total Creatine Kinase <20 L (30-135) U/L Albumin 3.4 L (3.5-5.0) g/dL Urine Appearance (Clear) Urine Protein (Negative) Urine Bilirubin (Negative) Amorphous Sediment (None) /hpf Urine Bacteria (None) /hpf Urine Mucus (None) /hpf 03/23/18 03/23/18 Range/Units 15:16 16:15 MCV (80.0-100.0) fL MCHC (31.0-37.0) g/dL Lymphocytes # (1.0-4.8) k/uL INR 1.3 H (<1.2) BUN (7-17) mg/dL Glucose (74-99) mg/dL Alkaline Phosphatase (38-126) U/L Total Creatine Kinase (30-135) U/L Albumin (3.5-5.0) g/dL Urine Appearance Cloudy H (Clear) Urine Protein Trace H (Negative) Urine Bilirubin 1+ H (Negative) Amorphous Sediment Rare H (None) /hpf Urine Bacteria Rare H (None) /hpf Urine Mucus Rare H (None) /hpf Thrombosis Risk Factor Assmnt - DVT/VTE Prophylaxis DVT/VTE Prophylaxis: Pharmacologic Prophylaxis ordered Assessment and Plan Assessment: Altered mental status likely due to underlying dementia and dehydration with possible urinary tract infection Dehydration, volume depletion. Oral intake Paroxysmal Atrial fibrillation. EKG showed atrial fibrillation. Rate controlled. 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 Chronic dysarthria, likely from underlying old stroke. -CODE STATUS DO NOT RESUSCITATE Plan: Patient will be continued on IV fluids in the form of D5 half-normal saline and antibiotics were started with levofloxacin. Patient is refusing to eat and swallow released was ordered. Continue supportive care and home medications were ordered. PT OT will be consulted and further recommendations based on the critical course. Prognosis is guarded. Time with Patient: Greater than 30
[2018-03-24] MEDS: carBAMazepine 300 MG CPMP.12HR PO SCH ×2 (12:54→22:05)
[2018-03-24] MEDS: METOPROLOL TARTRATE 25 MG TAB PO SCH ×2 (12:55→22:06)
[2018-03-24] MEDS: VALPROIC ACID ORAL SOLN 250 MG/5 ML CUP PO SCH (15:28)
[2018-03-24] MEDS: DEXTROSE 5%-0.45% NACL 1,000 ML IV SCH (15:36)
[2018-03-24] MEDS: HEPARIN SODIUM,PORCINE 5,000 UNIT/ML 1 ML VIAL SQ SCH ×2 (15:36→23:25)
[2018-03-24] MEDS ORDERED: LEVOFLOXACIN 750MG-D5W PMX 750 MG in DEXTROSE/WATER 1 150ML.BAG IVPB SCH (16:00)
[2018-03-24] MEDS: VALPROATE SODIUM 500 MG in SODIUM CHLORIDE 0.9% 50 ML IVPB SCH ×2 (17:13→23:27)
[2018-03-24] MEDS: ATORVASTATIN 10 MG TAB PO SCH (22:05)
[2018-03-24] MEDS: DOCUSATE 100 MG CAP PO SCH (22:05)
[2018-03-24] MEDS: AMMONIUM LACTATE 12% LOTION 225 GM BTL TOPICAL SCH (22:09)
--- NOTE | 2018-03-25 01:53 | P.PN ---
Subjective Progress Note Date: 03/24/18 Principal diagnosis: Altered mental status Difficulty swallowing and unable to tolerate oral diet Patient is a 72-year-old female with a known history of paroxysmal atrial fibrillation, dementia, hypertension, hypothyroidism, hyperlipidemia, coronary artery disease, CVA/TIA, seizure disorder and Parkinson's disease as well as multiple medical problems was sent to Hospital from care home due to altered mental status. Patient reported history due to underlying dementia and medical issues. Could not provide any history at this time. Otherwise patient is awake alert and he will ambulate stable and saturating well on room air. Patient was admitted to the hospital for possible urinary tract infection. Patient had recent hospital admission in September 2017. with urinary tract infection with Klebsiella as well as constipation. Otherwise patient is refusing to eat and says she is hungry. Patient denied any complaints of chest pain or shortness of breath. No abdominal pain. No nausea vomiting. EKG showed atrial fibrillation. Rate is controlled Chest x-ray showed cardiomegaly and chronic low lung volumes with persistent right basilar scarring and atelectasis. No new infiltrate seen. CT head showed no acute intracranial hemorrhage or midline shift. There is moderate to severe diffuse age-related cerebral atrophy and mild chronic small is an ischemic changes demonstrated. No significant change from prior CT. UA is cloudy but no leukocyte esterase and rare WBC count. 03/24/2018 Patient is lying in the bed comfortable otherwise could not provide any history. Patient is also not tolerating oral diet. Being continued on IV fluids in the form of D5 half normal saline. Patient otherwise continues to be in atrial fibrillation. Rate is fairly controlled with metoprolol. Patient is not on anticoagulation at home. GI will be consulted due to difficulty swallowing and poor oral intake. Urine culture showed normal skin /genital melchor. No fever no chills. No diarrhea. No nausea no vomiting. Review of systems could not be obtained from the patient Current medications reviewed Objective - Vital Signs Vital signs: Vital Signs Temp 97.0 F L 03/24/18 06:07 Pulse 98 03/24/18 08:40 Resp 18 03/24/18 08:40 BP 147/73 03/24/18 06:07 Pulse Ox 90 L 03/24/18 06:07 Intake & Output 03/23/18 03/24/18 03/24/18 18:59 06:59 18:59 Intake Total 1150 Balance 1150 Weight 90.718 kg Intake: Intake, IV Titration 1150 Amount Sodium Chloride 0.9% 1, 1150 000 ml @ 100 mls/hr IV . Q10H STA Rx#:[id number] Other: Voiding Method Diaper Diaper Incontinent Incontinent # Voids 2 - Exam PHYSICAL EXAMINATION: Patient is lying in the bed comfortably, no acute distress, awake alert but cannot provide history. HEENT: Normocephalic. Neck is supple. Pupils reactive. Legally blind. Nostrils clear. Oral cavity is moist. Ears reveal no drainage. Neck reveals no JVD, carotid bruits, or thyromegaly. CHEST EXAMINATION: Trachea is central. Symmetrical expansion. Bibasilar diminished air entry. Lung gleason clear to auscultation and percussion. CARDIAC: Normal S1, S2 with no gallops. No murmurs ABDOMEN: Soft. Bowel sounds normal. No organomegaly. No abdominal bruits. Extremities: reveal no edema. No clubbing or cyanosis Neurologically awake, alert, oriented x1 . Able to move all extremities. Skin: No rash or skin lesions. Psychiatric: Coperative. Could not be assessed Musculoskeletal: No joint swelling or deformity. Normal range of motion. - Labs CBC & Chem 7: 03/23/18 15:16 03/23/18 15:16 Labs: Abnormal Lab Results - Last 24 Hours (Table) 03/23/18 03/23/18 03/23/18 Range/Units 15:16 15:16 15:16 MCV 102.0 H (80.0-100.0) fL MCHC 30.9 L (31.0-37.0) g/dL Lymphocytes # 0.6 L (1.0-4.8) k/uL INR (<1.2) BUN 32 H (7-17) mg/dL Glucose 108 H (74-99) mg/dL Alkaline Phosphatase 191 H (38-126) U/L Total Creatine Kinase <20 L (30-135) U/L Albumin 3.4 L (3.5-5.0) g/dL Urine Appearance (Clear) Urine Protein (Negative) Urine Bilirubin (Negative) Amorphous Sediment (None) /hpf Urine Bacteria (None) /hpf Urine Mucus (None) /hpf 03/23/18 03/23/18 Range/Units 15:16 16:15 MCV (80.0-100.0) fL MCHC (31.0-37.0) g/dL Lymphocytes # (1.0-4.8) k/uL INR 1.3 H (<1.2) BUN (7-17) mg/dL Glucose (74-99) mg/dL Alkaline Phosphatase (38-126) U/L Total Creatine Kinase (30-135) U/L Albumin (3.5-5.0) g/dL Urine Appearance Cloudy H (Clear) Urine Protein Trace H (Negative) Urine Bilirubin 1+ H (Negative) Amorphous Sediment Rare H (None) /hpf Urine Bacteria Rare H (None) /hpf Urine Mucus Rare H (None) /hpf Microbiology - Last 24 Hours (Table) 03/23/18 16:15 Urine Culture - Preliminary Urine,Catheterized Assessment and Plan Assessment: Altered mental status likely due to underlying dementia and dehydration with possible urinary tract infection Dehydration, volume depletion. Decreased Oral intake Paroxysmal Atrial fibrillation. EKG showed atrial fibrillation. Rate controlled. 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 Chronic dysarthria, likely from underlying old stroke. -CODE STATUS DO NOT RESUSCITATE Plan: Patient will be continued on IV fluids in the form of D5 half-normal saline and antibiotics were started with levofloxacin. Patient is refusing to eat and swallow released was ordered. Continue supportive care and home medications were ordered. PT OT will be consulted and further recommendations based on the critical course. Prognosis is guarded. Will also consider psychiatric evaluation. Time with Patient: Greater than 30
[2018-03-25] MEDS: LEVOTHYROXINE 75 MCG TAB PO SCH (05:55)
[2018-03-25] MEDS: FUROSEMIDE 20 MG TAB PO SCH (05:55)
[2018-03-25] MEDS: PANTOPRAZOLE 40 MG TABLET PO SCH (05:56)
[2018-03-25 06:17] VITALS: BP 129/71; PULSE 115; RESP 16; TEMP 97.6
[2018-03-25] MEDS: DIPYRIDAMOLE-ASPIRIN 200-25 MG 1 EACH CPMP.12HR PO SCH (07:06)
[2018-03-25] MEDS: carBAMazepine 300 MG CPMP.12HR PO SCH (07:06)
[2018-03-25] MEDS: DOXAZOSIN 2 MG TAB PO SCH (07:07)
[2018-03-25] MEDS: SIMETHICONE 80 MG CHEWABLE PO SCH ×2 (07:07→09:30)
[2018-03-25] MEDS: POTASSIUM CHLORIDE ER 20 MEQ TAB.ER PO SCH (07:07)
[2018-03-25] MEDS: LACTULOSE 20 GM/30 ML CUP PO SCH (07:07)
[2018-03-25] MEDS: METOPROLOL TARTRATE 25 MG TAB PO SCH (07:07)
[2018-03-25] MEDS: lamoTRIgine 100 MG TAB PO SCH (07:07)
[2018-03-25] MEDS: DOCUSATE 100 MG CAP PO SCH (07:07)
[2018-03-25] MEDS: MEMANTINE 10 MG TAB PO SCH (07:07)
[2018-03-25] MEDS: DULoxetine HCL 20 MG CAPSULE.DR PO SCH (07:07)
[2018-03-25] MEDS: FOLIC ACID 1 MG TAB PO SCH (07:07)
[2018-03-25 07:35] LABS: Basophils % (A) 1 %; Eosinophils # (A) 0.1 k/uL (0-0.7); Eosinophils % (A) 1 %; HCT 36.2 % (34.0-46.0); HGB 11.3 gm/dL (11.4-16.0); Hypochromasia Slight; Lymphocytes # (A) 0.5 k/uL (1.0-4.8); Lymphocytes % (A) 7 %; MCH 31.5 pg (25.0-35.0); MCHC 31.1 g/dL (31.0-37.0); MCV 101.4 fL (80.0-100.0); Macrocytosis Slight; Mean Platelet Volume 6.5; Monocytes # (A) 0.6 k/uL (0-1.0); Monocytes % (A) 8 %; Neutrophils # (A) 5.3 k/uL (1.3-7.7); Neutrophils % (A) 81 %; Platelet Count 211 k/uL (150-450); RBC 3.57 m/uL (3.80-5.40); WBC 6.5 k/uL (3.8-10.6)
[2018-03-25] MEDS: VALPROATE SODIUM 500 MG in SODIUM CHLORIDE 0.9% 50 ML IVPB SCH ×2 (07:45→16:00)
[2018-03-25] MEDS: DEXTROSE 5%-0.45% NACL 1,000 ML IV SCH ×2 (07:45→12:39)
[2018-03-25] MEDS: HEPARIN SODIUM,PORCINE 5,000 UNIT/ML 1 ML VIAL SQ SCH ×2 (07:45→16:00)
[2018-03-25 07:47] LABS: Anion Gap 8 mmol/L; Blood Urea Nitrogen 9 mg/dL (7-17); Calcium 8.7 mg/dL (8.4-10.2); Carbon Dioxide 27 mmol/L (22-30); Chloride 106 mmol/L (98-107); Glucose 107 mg/dL (74-99); Potassium 3.2 mmol/L (3.5-5.1); Sodium 141 mmol/L (137-145)
--- NOTE | 2018-03-25 15:05 | P.DS ---
Providers Date of admission: 03/23/18 16:16 Attending physician: Amado Murray Consults: 03/24/18 12:37 Consult Physician Routine Consulting Provider: Lawson Yadav Consult Reason/Comments: unable to swallow possible foreign object Do you want consulting provider notified?: Yes, Notify in am Primary care physician: [facility] Course: 72-year-old female came in with increasing lethargy and was believed to have urinary tract infection. I do not believe patient has UTI years ruled out urine cultures are negative. Patient has multiple medical problems including advanced dementia most probably dementia believe body and history of Parkinson' s. Patient is mostly bedbound has a guardian. Patient is alert oriented 1 which is probably her baseline. Patient prognosis is extremely poor because of her advancing dementia and and her functional status is extremely poor and very look low Karnofsky score. Because of this I believe the most appropriate management for her is hospice, case management did discuss the same thing with the her guardian who is agreeable and hospice and I discussed with next of kin regarding her overall details of care and patient was subsequently made hospice will be discharged back to intermediate with hospice. No further admissions. Patient is alert oriented 1 which is her baseline PHYSICAL EXAMINATION: Patient is lying in the bed comfortably, no acute distress, awake alert but cannot provide history. HEENT: Normocephalic. Neck is supple. Pupils reactive. Legally blind. Nostrils clear. Oral cavity is moist. Ears reveal no drainage. Neck reveals no JVD, carotid bruits, or thyromegaly. CHEST EXAMINATION: Trachea is central. Symmetrical expansion. Bibasilar diminished air entry. Lung gleason clear to auscultation and percussion. CARDIAC: Normal S1, S2 with no gallops. No murmurs ABDOMEN: Soft. Bowel sounds normal. No organomegaly. No abdominal bruits. Extremities: reveal no edema. No clubbing or cyanosis Neurologically awake, alert, oriented x1 . Able to move all extremities. Skin: No rash or skin lesions. Psychiatric: Coperative. Could not be assessed Musculoskeletal: No joint swelling or deformity. Normal range of motion. Assessment and Plan Assessment: Altered mental status due to worsening dementia do not believe patient has urinary tract infection Dehydration, volume depletion. Decreased Oral intake Paroxysmal Atrial fibrillation. EKG showed atrial fibrillation. Rate controlled. 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 Chronic dysarthria, likely from underlying old stroke. -CODE STATUS DO NOT RESUSCITATE Patient is being discharged to intermediate with hospice Patient Condition at Discharge: Fair Plan - Discharge Summary Discharge Rx Participant: No New Discharge Prescriptions: Discontinued Memantine [Namenda] 10 mg PO Q12H Simvastatin [Zocor] 10 mg PO HS@2100 Potassium Chloride [Klor-Con 20] 20 meq PO DAILY@0900 Levothyroxine Sodium [Synthroid] 75 mcg PO DAILY@0600 Calcium Carbonate [Tums] 500 mg PO Q6H PRN PRN Reason: Indigestion Dipyridamole-Aspirin 200-25 mg [Aggrenox 25MG -200MG] 1 tab PO BID@0900,1700 Furosemide [Lasix] 20 mg PO DAILY@0600 No Action Simethicone [Gas-X] 125 mg PO PC-TID@,,18 Metoprolol Tartrate [Lopressor] 25 mg PO Q12H lamoTRIgine [LaMICtal] 150 mg PO Q12H carBAMazepine [Carbatrol] 300 mg PO BID@0900,2100 Omeprazole [PriLOSEC] 20 mg PO DAILY@0600 Folic Acid 1 mg PO DAILY@0900 Doxazosin Mesylate 2 mg PO DAILY@0900 Lactulose [Cephulac] 10 mg PO Q12HR Ipratropium-Albuterol Nebulize [Duoneb 0.5 mg-3 mg/3 ml Soln] 3 ml INHALATION RT-Q4H PRN PRN Reason: Cough Valproic Acid [Depakene] 500 mg PO Q12H Acetaminophen Tab [Tylenol] 650 mg PO Q4H PRN PRN Reason: Pain guaiFENesin-DM 100-10MG/5ML [Robitussin DM] 10 ml PO Q6HR PRN PRN Reason: Cough Ammonium Lactate Lotion [Lac-Hydrin 12% Lotion] 1 applic TOPICAL HS guaiFENesin [guaiFENesin Oral Solution] 200 mg PO Q4H PRN PRN Reason: Cough Ensure Clear 120 ml PO TID@,,21 DULoxetine HCL [Cymbalta] 20 mg PO DAILY@0900 Bismuth Subsalicylate [Pepto-Bismol] 524 mg PO Q4HR PRN PRN Reason: Diarrhea Discharge Medication List Doxazosin Mesylate 2 mg PO DAILY@0906/30/14 [History] Folic Acid 1 mg PO DAILY@0906/30/14 [History] Metoprolol Tartrate [Lopressor] 25 mg PO Q12H 06/30/14 [History] Omeprazole [PriLOSEC] 20 mg PO DAILY@0600 06/30/14 [History] Simethicone [Gas-X] 125 mg PO PC-TID@,06/30/14 [History] carBAMazepine [Carbatrol] 300 mg PO BID@0900,2100 06/30/14 [History] lamoTRIgine [LaMICtal] 150 mg PO Q12H 06/30/14 [History] Lactulose [Cephulac] 10 mg PO Q12HR 11/03/14 [History] Ipratropium-Albuterol Nebulize [Duoneb 0.5 mg-3 mg/3 ml Soln] 3 ml INHALATION RT -Q4H PRN 11/20/14 [History] Acetaminophen Tab [Tylenol] 650 mg PO Q4H PRN 11/03/16 [History] Valproic Acid [Depakene] 500 mg PO Q12H 11/03/16 [History] guaiFENesin-DM 100-10MG/5ML [Robitussin DM] 10 ml PO Q6HR PRN 11/03/16 [History] Ammonium Lactate Lotion [Lac-Hydrin 12% Lotion] 1 applic TOPICAL HS 09/13/17 [ History] DULoxetine HCL [Cymbalta] 20 mg PO DAILY@0900 09/13/17 [History] Ensure Clear 120 ml PO TID@,,09/13/17 [History] guaiFENesin [guaiFENesin Oral Solution] 200 mg PO Q4H PRN 09/13/17 [History] Bismuth Subsalicylate [Pepto-Bismol] 524 mg PO Q4HR PRN 03/23/18 [History] Follow up Appointment(s)/Referral(s): Diana,Luiz, MD [Primary Care Provider] - 1-2 days Activity/Diet/Wound Care/Special Instructions: [facility] - Discharge Disposition: DISCH TO HOSPICE MED FACILTY
== END 2018-03-25 16:00 | disposition hospice, inpatient (51) | DRG 57 ==
LOC: EC 15:06 → 5MS5E 16:16
PROVIDERS: ADMIT Hospitalist; ATTEND Hospitalist
DX: G31.83 Neurocognitive disorder with Lewy bodies (principal); J98.11 Atelectasis; Z66 Do not resuscitate; E88.09 Other disorders of plasma-protein metabolism, not elsewhere classified; I48.0 Paroxysmal atrial fibrillation; I11.0 Hypertensive heart disease with heart failure; I50.9 Heart failure, unspecified; E86.0 Dehydration; R13.10 Dysphagia, unspecified; F02.80 Dementia in other diseases classified elsewhere, unspecified severity, without behavioral disturbance, psychotic disturbance, mood disturbance, and anxiety; E78.5 Hyperlipidemia, unspecified; E03.9 Hypothyroidism, unspecified; G40.909 Epilepsy, unspecified, not intractable, without status epilepticus; G30.9 Alzheimer's disease, unspecified; I69.322 Dysarthria following cerebral infarction; R40.2362 Coma scale, best motor response, obeys commands, at arrival to emergency department; R40.2142 Coma scale, eyes open, spontaneous, at arrival to emergency department; R40.2242 Coma scale, best verbal response, confused conversation, at arrival to emergency department; G31.9 Degenerative disease of nervous system, unspecified; F89 Unspecified disorder of psychological development; F32.9 Major depressive disorder, single episode, unspecified; H54.8 Legal blindness, as defined in USA; M24.542 Contracture, left hand; D64.9 Anemia, unspecified; M81.0 Age-related osteoporosis without current pathological fracture; R32 Unspecified urinary incontinence; I25.10 Atherosclerotic heart disease of native coronary artery without angina pectoris; Z93.1 Gastrostomy status; Z79.890 Hormone replacement therapy; Z79.02 Long term (current) use of antithrombotics/antiplatelets; Z79.899 Other long term (current) drug therapy; Z87.440 Personal history of urinary (tract) infections; Z86.14 Personal history of Methicillin resistant Staphylococcus aureus infection; Z88.1 Allergy status to other antibiotic agents; Z88.5 Allergy status to narcotic agent
CPT/HCPCS: 36415; 51701; 70450; 71046; 80048; 80053; 81001; 82550; 82553; 83605; 83735; 84100; 84443; 84484; 85025; 85610; 85730; 87040; 87086; 93005; 96365; 99285

== ENCOUNTER 2018-03-26 14:04 | Observation (INO) | payer MEDICARE, OTHER ==
[2018-03-26] MEDS ORDERED: SODIUM CHLORIDE 0.9% 500 ML IV ONE (14:37)
[2018-03-26] MEDS ORDERED: DEXTROSE 5%-0.45% NACL 1,000 ML IV ONE (14:42)
--- NOTE | 2018-03-26 15:37 | ED ---
General Adult HPI - General Chief complaint: Recheck/Abnormal Lab/Rx Stated complaint: PEG tube problem Time Seen by Provider: 03/26/18 14:18 Source: EMS Mode of arrival: EMS Limitations: altered mental status, physical limitation - History of Present Illness Initial comments: This is a 72 yo female with PMH of atrial fibrillation, coronary artery disease , heart failure, multiple previous CVAs with residual deficits including b/l blindness, dementia, Parkinson' who sent over from [facility] for PEG tube placement for difficulty swallowing. I called [facility] for more information. Nurse stated pt was recently hospitalized here at [facility] for AMS 03/23/2018, she was evaluated and d/c with dx of "worsening of dementia" -per nurse Schafer. Since she came back to [facility] pt has not changed mental status but the difficulty swallowin remained unchanged. Family is in the process of switching her to hospice care, however they want hospice with feeding tube. Dr. Ramirez agreed with peg tube placement. Patient was brought by EMS. Dr. Desai took call from [facility] who called for PEG tube placement. They deny any new onset symptoms, confusion, altered mental status. Upon arrival pt VS stable. - Related Data Home Medications Medication Instructions Recorded Confirmed Doxazosin Mesylate 2 mg PO DAILY@0900 06/30/14 03/26/18 Folic Acid 1 mg PO DAILY@0900 06/30/14 03/26/18 Metoprolol Tartrate [Lopressor] 25 mg PO BID@0900,209906/30/14 03/26/18 Omeprazole [PriLOSEC] 20 mg PO DAILY@0600 06/30/14 03/26/18 Simethicone [Gas-X] 125 mg PO TID 06/30/14 03/26/18 carBAMazepine [Carbatrol] 300 mg PO BID@0900,209906/30/14 03/26/18 lamoTRIgine [LaMICtal] 150 mg PO BID@0900,209906/30/14 03/26/18 Lactulose [Cephulac] 10 gm PO BID@0900,209911/03/14 03/26/18 Ipratropium-Albuterol Nebulize 3 ml INHALATION RT-Q4H PRN 11/20/14 03/26/18 [Duoneb 0.5 mg-3 mg/3 ml Soln] Acetaminophen Tab [Tylenol] 650 mg PO Q4H PRN 11/03/16 03/26/18 Valproic Acid [Depakene] 500 mg PO BID@0900,2100 11/03/16 03/26/18 Ammonium Lactate Lotion 1 applic TOPICAL HS 09/13/17 03/26/18 [Lac-Hydrin 12% Lotion] DULoxetine HCL [Cymbalta] 20 mg PO DAILY@0900 09/13/17 03/26/18 Ensure Clear 120 ml PO TID@09,1300,2100 09/13/17 03/26/18 guaiFENesin [guaiFENesin Oral 200 mg PO Q4H PRN 09/13/17 03/26/18 Solution] Bismuth Subsalicylate 524 mg PO Q4HR PRN 03/23/18 03/26/18 [Pepto-Bismol] Doxazosin Mesylate 2 mg PO DAILY 03/26/18 03/26/18 Furosemide [Lasix] 20 mg PO DAILY 03/26/18 03/26/18 Morphine Sulfate [Morphine Sulfate 5 mg PO Q4H PRN 03/26/18 03/26/18 Oral Soln Conc (20 MG/ML)] Potassium Chloride [Klor-Con 20] 20 meq PO DAILY 03/26/18 03/26/18 Simvastatin [Zocor] 10 mg PO HS 03/26/18 03/26/18 guaiFENesin-DM 100-10MG/5ML 200 mg PO Q6H PRN 03/26/18 03/26/18 [Robitussin DM] Allergies Allergy/AdvReac Type Severity Reaction Status Date / Time Cephalosporins Allergy Unknown Verified 03/26/18 14:20 erythromycin lactobionate Allergy Unknown Verified 03/26/18 14:20 [From Erythrocin] propoxyphene napsylate Allergy Unknown Verified 03/26/18 14:20 [From Darvocet-N 100] Review of Systems ROS Statement: Those systems with pertinent positive or pertinent negative responses have been documented in the HPI. ROS Other: All systems not noted in ROS Statement are negative. Limitations: ROS unobtainable due to patients medical condition (limited due to pt dementia, dsyphagia, and residual deficits) Respiratory: Denies: dyspnea Cardiovascular: Denies: chest pain Gastrointestinal: Denies: abdominal pain Past Medical History Past Medical History: Atrial Fibrillation, Coronary Artery Disease (CAD), Heart Failure, CVA/TIA, Dementia, Eye Disorder, Hyperlipidemia, Hypertension, Musculoskeletal Disorder, Neurologic Disorder, Pneumonia, Seizure Disorder, Thyroid Disorder Additional Past Medical History / Comment(s): past ileus,HX OF METABOLIC ENCEPHALOPATHY, SEPSIS., LEGALLY BLIND, PARKINSONS, OSTEOPOROSIS, DEMENTIA, DELAYED DEVELOPMENT,. plasma protein metabolic disorder, unspecified disease of pericardium, SOME EDEMA LOWER EXTREMITIES, UNKNOWN DATE OF LAST SEIZURE. , HYPOTHYOID, UTI'S,ANEMIA, HEART DISEASE, CONTRACTURE LT HAND WITH FINGER DIGGING INTO PALM, , NAUSEATED EASILY.,INCONTINENT. URINE & STOOL- WEARS ATTENDS. , ALLAN LIFT, UNABLE TO STAND. History of Any Multi-Drug Resistant Organisms: MRSA Date of last positivie culture/infection: 06/24/14 MDRO Source:: Left First Toe Past Surgical History: Orthopedic Surgery Additional Past Surgical History / Comment(s): RT. ANKLE, EYES, 11/06/14 PEG TUBE , FLEXOR TENDON RELEASE SURGERIES FOR FINGER CONTRACTURES., CLOSED REDUCTION PERCUANEOUS PINNING LEFT MIDDLE FINGER.( 09/06/16) Past Anesthesia/Blood Transfusion Reactions: Unable to Obtain Additional Past Anesthesia/Blood Transfusion Reaction / Comment(s): UNKNOWN- PT @ [facility] [place] Past Psychological History: Depression Smoking Status: Never smoker Past Alcohol Use History: None Reported Past Drug Use History: None Reported - Past Family History Father Family Medical History: Unable to Obtain Additional Family Medical History / Comment(s): . Mother Family Medical History: Unable to Obtain Additional Family Medical History / Comment(s): . General Exam - General Exam Comments Initial Comments: General: The patient is awake. Pt is AAOX1. Was told by EMS she is at baseline. Eye: Pupils are unequal, round and not reactive to light, extra-ocular movements are intact. No conjugate gaze. No nystagmus. There is normal conjunctiva bilaterally. No signs of icterus. Ears, nose, mouth and throat: There are moist mucous membranes and no oral lesions. Neck: The neck is supple, there is no tenderness or JVD. Cardiovascular: There is a regular rate and rhythm. No murmur, rub or gallop is appreciated. Respiratory: Lungs are clear to auscultation, respirations are non-labored, breath sounds are equal. No wheezes, stridor, rales, or rhonchi. Gastrointestinal: Soft, non-distended, non-tender abdomen without masses or organomegaly noted. There is no rebound or guarding present. Bowel sounds are unremarkable. Musculoskeletal: Radial pulses equal bilaterally 2+. Skin: Skin is warm and dry and no rashes or lesions are noted. Psychiatric: Cooperative, follows verbal commands, squeezes fingers b/l. Limitations: altered mental status, physical limitation Course Vital Signs 03/26/18 03/26/18 14:06 19:12 Temperature 99.2 F 98 F Pulse Rate 97 109 H Respiratory 18 18 Rate Blood Pressure 151/66 158/71 O2 Sat by Pulse 95 96 Oximetry Medical Decision Making - Medical Decision Making Pt reports from recent hospitalization reviewed in detail. PT AAOx1- appears to be baseline given previous medical records and after conversation with nurse schafer at [facility]. Physical examination unchanged from previous admission. Pt VS stable, with BP mildly elevated. Case discussed with Dr. Desai who stated pt was here for peg tube placement. Pt discussed the case with Dr. Murray who accepted pt in observation unit with Dr. Day consult. Basic labs obtained, pt K+ returned at 3.0. Pt given 40mEQ IV ([id number]). Repeat K+ to be obtained in 4 hours. Pt was reevaluated by myself at 16:00 and 19:30, no changes in examination. Pt stated she was comfortable when asked. Case discussed with Dr. Desai prior to shift change, pt had not been admitted yet. He will continue care of patient until admission. - Lab Data Result diagrams: 03/26/18 14:23 03/26/18 14:23 Lab Results 03/26/18 03/26/18 Range/Units 14:23 14:23 WBC 6.6 (3.8-10.6) k/uL RBC 3.83 (3.80-5.40) m/uL Hgb 11.8 (11.4-16.0) gm/dL Hct 39.1 (34.0-46.0) % MCV 102.1 H (80.0-100.0) fL MCH 30.8 (25.0-35.0) pg MCHC 30.2 L (31.0-37.0) g/dL RDW 14.4 (11.5-15.5) % Plt Count 226 (150-450) k/uL Neutrophils % 81 % Lymphocytes % 9 % Monocytes % 9 % Eosinophils % 1 % Basophils % 0 % Neutrophils # 5.3 (1.3-7.7) k/uL Lymphocytes # 0.6 L (1.0-4.8) k/uL Monocytes # 0.6 (0-1.0) k/uL Eosinophils # 0.1 (0-0.7) k/uL Basophils # 0.0 (0-0.2) k/uL Hypochromasia Slight Macrocytosis Slight Sodium 143 (137-145) mmol/L Potassium 3.0 L* (3.5-5.1) mmol/L Chloride 107 (98-107) mmol/L Carbon Dioxide 27 (22-30) mmol/L Anion Gap 9 mmol/L BUN 9 (7-17) mg/dL Creatinine 0.30 L (0.52-1.04) mg/dL Est GFR (CKD-EPI)AfAm >90 (>60 ml/min/1.73 sqM) Est GFR (CKD-EPI)NonAf >90 (>60 ml/min/1.73 sqM) Glucose 95 (74-99) mg/dL Calcium 8.9 (8.4-10.2) mg/dL Total Bilirubin 0.9 (0.2-1.3) mg/dL AST 25 (14-36) U/L ALT 23 (9-52) U/L Alkaline Phosphatase 152 H (38-126) U/L Total Protein 6.0 L (6.3-8.2) g/dL Albumin 2.9 L (3.5-5.0) g/dL Disposition Clinical Impression: Dysphagia, Hypokalemia Disposition: ADMITTED IP TO THIS [facility] Condition: Stable Time of Disposition: 20:52
[2018-03-26 15:51] LABS: Basophils % (A) 0 %; Eosinophils # (A) 0.1 k/uL (0-0.7); Eosinophils % (A) 1 %; HCT 39.1 % (34.0-46.0); HGB 11.8 gm/dL (11.4-16.0); Hypochromasia Slight; Lymphocytes # (A) 0.6 k/uL (1.0-4.8); Lymphocytes % (A) 9 %; MCH 30.8 pg (25.0-35.0); MCHC 30.2 g/dL (31.0-37.0); MCV 102.1 fL (80.0-100.0); Macrocytosis Slight; Mean Platelet Volume 6.8; Monocytes # (A) 0.6 k/uL (0-1.0); Monocytes % (A) 9 %; Neutrophils # (A) 5.3 k/uL (1.3-7.7); Neutrophils % (A) 81 %; Platelet Count 226 k/uL (150-450); RBC 3.83 m/uL (3.80-5.40); RDW 14.4 % (11.5-15.5); WBC 6.6 k/uL (3.8-10.6)
[2018-03-26 16:02] LABS: ALT 23 U/L (9-52); AST 25 U/L (14-36); Albumin 2.9 g/dL (3.5-5.0); Alkaline Phosphatase 152 U/L (38-126); Anion Gap 9 mmol/L; Blood Urea Nitrogen 9 mg/dL (7-17); Calcium 8.9 mg/dL (8.4-10.2); Carbon Dioxide 27 mmol/L (22-30); Chloride 107 mmol/L (98-107); Glucose 95 mg/dL (74-99); Sodium 143 mmol/L (137-145); Total Bilirubin 0.9 mg/dL (0.2-1.3)
[2018-03-26] MEDS: POTASSIUM CHLORIDE 10 MEQ in WATER FOR INJECTION 1 100ML.BAG IVPB SCH ×4 (17:20→22:27)
[2018-03-26] MEDS: DEXTROSE 5%-0.45% NACL 1,000 ML IV SCH (21:24)
--- NOTE | 2018-03-27 08:50 | P.CONS ---
<Pia Dorado - Last Filed: 03/27/18 10:09> History of Present Illness - Reason for Consult Consult date: 03/27/18 PEG tube evaluation Requesting physician: Amado Murray - Chief Complaint dysphagia unable to meet nutritional needs failed bedside swallow - History of Present Illness 72-year-old female with a history of dementia, Parkinson's disease, seizure disorder, CAD, CVA, paroxysmal atrial fibrillation admitted with failure to thrive poor nutritional intake failed bedside swallow exam in ER with increased coughing. Family is considering hospice care and requested PEG tube evaluation/ insertion for nutrition and medications. History obtained from medical records and nursing staff as patient is unable to provide a detailed history. She was recently hospitalized week ago for possible UTI. Nursing reports no episodes of nausea vomiting fever chills hematemesis hematochezia or melena. No history of known gastric or bowel surgeries. Upon review of medical records no significant weight loss over the last several months approximately 5 kg weight loss documented. White count 6.5. Hemoglobin 11.3. MCV 101. Platelet 211. INR 4 days ago was 1.3. BUN 9. Creatinine 0.3. LFTs within normal limits except alkaline phosphatase slightly elevated 152. Review of Systems Reviewed medical records Constitutional: Denies fever, chills, sweats, weight gain, or loss. History of dementia. Parkinson's. HEENT: Negative for migraines, blurred vision or loss, earaches, drainage, tinnitus, oral mucosal lesions, reported dysphagia. CARDIAC: Negative for chest pain, arrhythmias, or palpitation. RESPIRATORY: Negative for shortness of breath, hemoptysis, cough, or sputum production. GI: See HPI for pertinent findings. : Negative for hematuria, urgency, frequency, polyuria, or dysuria. GYNc: Negative vaginal discharge. MUSCULOSKELETAL: Negative for muscle aches, swelling, arthritis, and arthralgias. NEUROLOGIC: History of seizure disorder. History of CVA/TIA. ENDOCRINE: Street of thyroid problems. SKIN: Negative for rash or itching. PSYCHIATRIC: Negative history for depression and anxiety ROS unobtainable: due to mental status Past Medical History Past Medical History: Atrial Fibrillation, Coronary Artery Disease (CAD), Heart Failure, CVA/TIA, Dementia, Eye Disorder, Hyperlipidemia, Hypertension, Musculoskeletal Disorder, Neurologic Disorder, Pneumonia, Seizure Disorder, Thyroid Disorder Additional Past Medical History / Comment(s): past ileus,HX OF METABOLIC ENCEPHALOPATHY, SEPSIS., LEGALLY BLIND, PARKINSONS, OSTEOPOROSIS, DEMENTIA, DELAYED DEVELOPMENT,. plasma protein metabolic disorder, unspecified disease of pericardium, SOME EDEMA LOWER EXTREMITIES, UNKNOWN DATE OF LAST SEIZURE. , HYPOTHYOID, UTI'S,ANEMIA, HEART DISEASE, CONTRACTURE LT HAND WITH FINGER DIGGING INTO PALM, , NAUSEATED EASILY.,INCONTINENT. URINE & STOOL- WEARS ATTENDS. , ALLAN LIFT, UNABLE TO STAND. History of Any Multi-Drug Resistant Organisms: MRSA Year Discovered:: 06/24/14 MDRO Source:: Left First Toe Past Surgical History: Orthopedic Surgery Additional Past Surgical History / Comment(s): RT. ANKLE, EYES, 11/06/14 PEG TUBE , FLEXOR TENDON RELEASE SURGERIES FOR FINGER CONTRACTURES., CLOSED REDUCTION PERCUANEOUS PINNING LEFT MIDDLE FINGER.( 09/06/16) Past Anesthesia/Blood Transfusion Reactions: Unable to Obtain Additional Past Anesthesia/Blood Transfusion Reaction / Comm: UNKNOWN- PT @ [facility] [address] Past Psychological History: Depression Smoking Status: Never smoker Past Alcohol Use History: None Reported Past Drug Use History: None Reported - Past Family History Father Family Medical History: Unable to Obtain Additional Family Medical History / Comment(s): . Mother Family Medical History: Unable to Obtain Additional Family Medical History / Comment(s): . Medications and Allergies Home Medications Medication Instructions Recorded Confirmed Type Metoprolol Tartrate [Lopressor] 25 mg PO BID@0900,2100 06/30/14 03/26/18 History Omeprazole [PriLOSEC] 20 mg PO DAILY@0600 06/30/14 03/26/18 History Simethicone [Gas-X] 125 mg PO TID 06/30/14 03/26/18 History carBAMazepine [Carbatrol] 300 mg PO BID@0900,209906/30/14 03/26/18 History lamoTRIgine [LaMICtal] 150 mg PO BID@0900,209906/30/14 03/26/18 History Lactulose [Cephulac] 10 gm PO BID@0900,2100 11/03/14 03/26/18 History Ipratropium-Albuterol Nebulize 3 ml INHALATION RT-Q4H PRN 11/20/14 03/26/18 History [Duoneb 0.5 mg-3 mg/3 ml Soln] Acetaminophen Tab [Tylenol] 650 mg PO Q4H PRN 11/03/16 03/26/18 History Valproic Acid [Depakene] 500 mg PO BID@0900,2100 11/03/16 03/26/18 History Ammonium Lactate Lotion 1 applic TOPICAL HS 09/13/17 03/26/18 History [Lac-Hydrin 12% Lotion] DULoxetine HCL [Cymbalta] 20 mg PO DAILY@0900 09/13/17 03/26/18 History Ensure Clear 120 ml PO TID@09,1300,2100 09/13/17 03/26/18 History guaiFENesin [guaiFENesin Oral 200 mg PO Q4H PRN 09/13/17 03/26/18 History Solution] Bismuth Subsalicylate 524 mg PO Q4HR PRN 03/23/18 03/26/18 History [Pepto-Bismol] Doxazosin Mesylate 2 mg PO DAILY 03/26/18 03/26/18 History Furosemide [Lasix] 20 mg PO DAILY 03/26/18 03/26/18 History Morphine Sulfate [Morphine Sulfate 5 mg PO Q4H PRN 03/26/18 03/26/18 History Oral Soln Conc (20 MG/ML)] Simvastatin [Zocor] 10 mg PO HS 03/26/18 03/26/18 History guaiFENesin-DM 100-10MG/5ML 200 mg PO Q6H PRN 03/26/18 03/26/18 History [Robitussin DM] Allergies Allergy/AdvReac Type Severity Reaction Status Date / Time Cephalosporins Allergy Unknown Verified 03/26/18 14:20 erythromycin lactobionate Allergy Unknown Verified 03/26/18 14:20 [From Erythrocin] propoxyphene napsylate Allergy Unknown Verified 03/26/18 14:20 [From Darvocet-N 100] Physical Exam Vitals: Vital Signs Temp Pulse Pulse Resp BP BP Pulse Ox 03/27/18 08:07 101 H 03/27/18 08:05 98.2 F 101 H 14 132/82 97 03/27/18 02:43 98.4 F 112 H 16 145/63 97 03/26/18 21:28 98.2 F 108 H 20 119/60 96 03/26/18 20:59 98.0 F 110 H 18 134/87 98 03/26/18 19:12 98 F 109 H 18 158/71 96 03/26/18 14:06 99.2 F 97 18 151/66 95 Intake and Output 03/26/18 03/27/18 03/27/18 22:59 06:59 14:59 Intake Total 400 600 Balance 400 600 Intake: Intake, IV Titration 400 600 Amount Dextrose 5%-0.45% NaCl 1, 600 000 ml @ 75 mls/hr IV . [id number] ONE Rx#:[id number] Potassium Chloride 10 meq 400 In Water For Injection 1 100ml.bag @ 100 mls/hr IVPB Q1HR [facility] Rx#: [id number] Other: # Voids 3 General appearance: The patient is alert, to self in no acute distress answers simple questions.. HET: Head is normocephalic and atraumatic. Pupils are equal and reactive. Oropharynx is clear without lesions. Neck: Supple without lymphadenopathy. Trachea midline. Heart: S1 S2. Lungs: No crackles or wheezes are heard. Abdomen: Soft, midepigastric tenderness, nondistended with bowel sounds. No peritoneal signs. No palpable organomegaly or masses. Extremities: Normal skin color and turgor. No cyanosis, rash, ulceration, clubbing, or edema. Radial and pedal pulses are 2/4 bilaterally. Neurological: No focal deficits. Strength and sensation are grossly intact. Results CBC & Chem 7: 03/26/18 14:23 03/26/18 14:23 Labs: Abnormal Lab Results - Last 24 Hours (Table) 03/26/18 03/26/18 Range/Units 14:23 14:23 MCV 102.1 H (80.0-100.0) fL MCHC 30.2 L (31.0-37.0) g/dL Lymphocytes # 0.6 L (1.0-4.8) k/uL Potassium 3.0 L* (3.5-5.1) mmol/L Creatinine 0.30 L (0.52-1.04) mg/dL Alkaline Phosphatase 152 H (38-126) U/L Total Protein 6.0 L (6.3-8.2) g/dL Albumin 2.9 L (3.5-5.0) g/dL Assessment and Plan (1) Dysphagia Narrative/Plan: 72-year-old female with a history of Parkinson's dementia admitted with reports of dysphagia difficulty swallowing coughing unable to meet her nutritional needs family requesting PEG tube insertion for continuance of nutrition and medications. Status: Acute Code(s): R13.10 - DYSPHAGIA, UNSPECIFIED SNOMED Code(s): 09431213 (2) Parkinsons disease Status: Acute Code(s): G20 - PARKINSON'S DISEASE SNOMED Code(s): 58196938 (3) Seizure disorder Status: Acute Code(s): G40.909 - EPILEPSY, UNSP, NOT INTRACTABLE, WITHOUT STATUS EPILEPTICUS SNOMED Code(s): 536013613 (4) Paroxysmal atrial fibrillation Status: Acute Code(s): I48.0 - PAROXYSMAL ATRIAL FIBRILLATION SNOMED Code(s) : 307679804 Plan: 1. Considering patient had midepigastric tenderness on exam this morning will order two-view abdominal x-ray before proceeding with PEG insertion. If x-ray is stable will proceed with PEG tube insertion. Prealbumin. Estate Planning Director consult for TF evaluation. GI prophylaxis Protonix 40 mg IV daily. Continue with nothing by mouth status. The business liaison manager has discussed the risks, benefits and alternative therapies for the above-mentioned procedure and for both sedation/analgesia as well as necessary blood product administration, if indicated, as they pertain to this patient. The patient advocate has indicated understanding and acceptance of the risks and procedures discussed. Thank you for this kind referral and the opportunity to participate in the care of your patient. This consultation was discussed with Dr. Peterson. The impression and plan of care have been directed as dictated. <David Peterson - Last Filed: 03/29/18 10:27> Physical Exam Vitals: Vital Signs Temp Pulse Resp BP Pulse Ox 03/28/18 15:00 98.8 F 96 15 169/90 99 Results CBC & Chem 7: 03/26/18 14:23 03/26/18 14:23 Assessment and Plan Plan: The patient has been seen and evaluated, and the plan of care discussed. I agree with the above recommendations and assessment and plan.
[2018-03-27] MEDS: PANTOPRAZOLE 40 MG/10 ML VIAL IVP SCH (09:46)
[2018-03-27 11:49] VITALS: BMI 34.4
--- NOTE | 2018-03-27 13:48 | P.HPIM ---
History of Present Illness 69-year-old female was discharged from my service after a she was treated for lethargy altered mental status which is secondary to worsening dementia. Patient does have elevated dementia extremely poor functional status bedbound poor Karnofsky score because of which I made her hospice after discussing with one of the family members and legal guardian. At that time the duration was made not to put a PEG tube. Although family wanted her to have a PEG tube and remain on hospice, Dr. Ortiz physician at the long term and legal guardian agreed and patient was sent back for PEG tube placement. Gastric body was consulted for PEG tube placement, patient mental status is at her baseline patient is alert oriented 1-2. Denied any symptoms at this point of time. Patient will undergo PEG tube placement tomorrow. Patient is on multiple antiseizure medications which she need to receive and also tachycardic because of reflux tachycardia from not receiving metoprolol. We'll try and give her by mouth medications and we'll switch valproic acid to IV will get valproic acid levels. Review of Systems Unable to obtain due to above-mentioned reasons Past Medical History Past Medical History: Atrial Fibrillation, Coronary Artery Disease (CAD), Heart Failure, CVA/TIA, Dementia, Eye Disorder, Hyperlipidemia, Hypertension, Musculoskeletal Disorder, Neurologic Disorder, Pneumonia, Seizure Disorder, Thyroid Disorder Additional Past Medical History / Comment(s): past ileus,HX OF METABOLIC ENCEPHALOPATHY, SEPSIS., LEGALLY BLIND, PARKINSONS, OSTEOPOROSIS, DEMENTIA, DELAYED DEVELOPMENT,. plasma protein metabolic disorder, unspecified disease of pericardium, SOME EDEMA LOWER EXTREMITIES, UNKNOWN DATE OF LAST SEIZURE. , HYPOTHYOID, UTI'S,ANEMIA, HEART DISEASE, CONTRACTURE LT HAND WITH FINGER DIGGING INTO PALM, , NAUSEATED EASILY.,INCONTINENT. URINE & STOOL- WEARS ATTENDS. , TROY LIFT, UNABLE TO STAND. History of Any Multi-Drug Resistant Organisms: MRSA Date of last positivie culture/infection: 06/24/14 MDRO Source:: Left First Toe Past Surgical History: Orthopedic Surgery Additional Past Surgical History / Comment(s): RT. ANKLE, EYES, 11/06/14 PEG TUBE , FLEXOR TENDON RELEASE SURGERIES FOR FINGER CONTRACTURES., CLOSED REDUCTION PERCUANEOUS PINNING LEFT MIDDLE FINGER.( 09/06/16) Past Anesthesia/Blood Transfusion Reactions: Unable to Obtain Additional Past Anesthesia/Blood Transfusion Reaction / Comment(s): UNKNOWN- PT @ [facility] [address] Past Psychological History: Depression Smoking Status: Never smoker Past Alcohol Use History: None Reported Past Drug Use History: None Reported - Past Family History Father Family Medical History: Unable to Obtain Additional Family Medical History / Comment(s): . Mother Family Medical History: Unable to Obtain Additional Family Medical History / Comment(s): . Medications and Allergies Home Medications Medication Instructions Recorded Confirmed Type Doxazosin Mesylate 2 mg PO DAILY@0900 06/30/14 03/26/18 History Folic Acid 1 mg PO DAILY@0900 06/30/14 03/26/18 History Metoprolol Tartrate [Lopressor] 25 mg PO BID@0900,209906/30/14 03/26/18 History Omeprazole [PriLOSEC] 20 mg PO DAILY@0600 06/30/14 03/26/18 History Simethicone [Gas-X] 125 mg PO TID 06/30/14 03/26/18 History carBAMazepine [Carbatrol] 300 mg PO BID@0900,209906/30/14 03/26/18 History lamoTRIgine [LaMICtal] 150 mg PO BID@0900,209906/30/14 03/26/18 History Lactulose [Cephulac] 10 gm PO BID@0900,209911/03/14 03/26/18 History Ipratropium-Albuterol Nebulize 3 ml INHALATION RT-Q4H PRN 11/20/14 03/26/18 History [Duoneb 0.5 mg-3 mg/3 ml Soln] Acetaminophen Tab [Tylenol] 650 mg PO Q4H PRN 11/03/16 03/26/18 History Valproic Acid [Depakene] 500 mg PO BID@0900,209911/03/16 03/26/18 History Ammonium Lactate Lotion 1 applic TOPICAL HS 09/13/17 03/26/18 History [Lac-Hydrin 12% Lotion] DULoxetine HCL [Cymbalta] 20 mg PO DAILY@0900 09/13/17 03/26/18 History Ensure Clear 120 ml PO TID@09,1300,209909/13/17 03/26/18 History guaiFENesin [guaiFENesin Oral 200 mg PO Q4H PRN 09/13/17 03/26/18 History Solution] Bismuth Subsalicylate 524 mg PO Q4HR PRN 03/23/18 03/26/18 History [Pepto-Bismol] Doxazosin Mesylate 2 mg PO DAILY 03/26/18 03/26/18 History Furosemide [Lasix] 20 mg PO DAILY 03/26/18 03/26/18 History Morphine Sulfate [Morphine Sulfate 5 mg PO Q4H PRN 03/26/18 03/26/18 History Oral Soln Conc (20 MG/ML)] Potassium Chloride [Klor-Con 20] 20 meq PO DAILY 03/26/18 03/26/18 History Simvastatin [Zocor] 10 mg PO HS 03/26/18 03/26/18 History guaiFENesin-DM 100-10MG/5ML 200 mg PO Q6H PRN 03/26/18 03/26/18 History [Robitussin DM] Allergies Allergy/AdvReac Type Severity Reaction Status Date / Time Cephalosporins Allergy Unknown Verified 03/26/18 14:20 erythromycin lactobionate Allergy Unknown Verified 03/26/18 14:20 [From Erythrocin] propoxyphene napsylate Allergy Unknown Verified 03/26/18 14:20 [From Darvocet-N 100] Physical Exam Vitals: Vital Signs Temp Pulse Pulse Resp BP BP Pulse Ox 03/27/18 08:07 101 H 03/27/18 08:05 98.2 F 101 H 14 132/82 97 03/27/18 02:43 98.4 F 112 H 16 145/63 97 03/26/18 21:28 98.2 F 108 H 20 119/60 96 03/26/18 20:59 98.0 F 110 H 18 134/87 98 03/26/18 19:12 98 F 109 H 18 158/71 96 03/26/18 14:06 99.2 F 97 18 151/66 95 Intake and Output 03/26/18 03/27/18 03/27/18 22:59 06:59 14:59 Intake Total 400 600 Balance 400 600 Intake: Intake, IV Titration 400 600 Amount Dextrose 5%-0.45% NaCl 1, 600 000 ml @ 75 mls/hr IV . [id number] ONE Rx#:[id number] Potassium Chloride 10 meq 400 In Water For Injection 1 100ml.bag @ 100 mls/hr IVPB Q1HR [facility] Rx#: [id number] Other: # Voids 3 Weight 99.79 kg PHYSICAL EXAMINATION: Patient is lying in the bed comfortably, no acute distress, awake alert but cannot provide history. HEENT: Normocephalic. Neck is supple. Pupils reactive. Legally blind. Nostrils clear. Oral cavity is moist. Ears reveal no drainage. Neck reveals no JVD, carotid bruits, or thyromegaly. CHEST EXAMINATION: Trachea is central. Symmetrical expansion. Bibasilar diminished air entry. Lung gleason clear to auscultation and percussion. CARDIAC: Normal S1, S2 with no gallops. No murmurs ABDOMEN: Soft. Bowel sounds normal. No organomegaly. No abdominal bruits. Extremities: reveal no edema. No clubbing or cyanosis Neurologically awake, alert, oriented x1 . Able to move all extremities. Skin: No rash or skin lesions. Psychiatric: Coperative. Could not be assessed Musculoskeletal: No joint swelling or deformity. Normal range of motion. Results CBC & Chem 7: 03/26/18 14:23 03/26/18 14:23 Labs: Abnormal Lab Results - Last 24 Hours (Table) 03/26/18 03/26/18 Range/Units 14:23 14:23 MCV 102.1 H (80.0-100.0) fL MCHC 30.2 L (31.0-37.0) g/dL Lymphocytes # 0.6 L (1.0-4.8) k/uL Potassium 3.0 L* (3.5-5.1) mmol/L Creatinine 0.30 L (0.52-1.04) mg/dL Alkaline Phosphatase 152 H (38-126) U/L Total Protein 6.0 L (6.3-8.2) g/dL Albumin 2.9 L (3.5-5.0) g/dL Assessment and Plan Plan: -Dysphagia: Secondary to advanced Parkinson's and dementia patient will receive PEG tube. -Seizure disorder patient will be switched to IV valproic acid valproic acid levels will be obtained patient will be on IV Protonix and try and see if she can receive metoprolol orally as IV metoprolol can cause hypotension. Advanced dementia probably Lewy body dementia Paroxysmal Atrial fibrillation. Mildly elevated heart rate reflux because she didn't receive her metoprolol Chronic CHF with ejection fraction unknown Hyperlipidemia Legally blind Parkinson's disease Contracture left hand Hypertension Seizure disorder Hypothyroidism Chronic urinary incontinence Depression Chronic medical debility, at her baseline uses a [place] lift. Chronic dysarthria, likely from underlying old stroke. -CODE STATUS DO NOT RESUSCITATE
--- NOTE | 2018-03-27 14:00 | XR ---
Abdomen 2 view HISTORY: Epigastric pain 2 views of the abdomen on 3 images Correlation to prior abdomen 09/15/2017 There is a large amount of retained fecal debris within the rectum, correlate to exclude impaction. B one mineralization is reduced, there are vascular calcifications present. Degenerative disc changes p resent in the visualized spine. No evident obstruction or pneumoperitoneum. Surgical clips present in the right upper quadrant. Right hemidiaphragm appears elevated. Artery is enlarged. Breast calcifica tions are suspected bilaterally. There may be spinal curvature. Arthropathy noted within the hips. IMPRESSION: Correlate for fecal impaction. Bilateral breast calcifications again noted. Consider bon elation with mammography. Degenerative disc disease, postop changes. Chronic elevation of the right h emidiaphragm, cardiomegaly.
[2018-03-27] MEDS: DEXTROSE 5%-0.45% NACL 1,000 ML IV SCH (16:18)
[2018-03-27] MEDS: DEXTROSE 5%-0.9% NACL 1,000 ML IV SCH (17:28)
[2018-03-27] MEDS: VALPROATE SODIUM 500 MG in SODIUM CHLORIDE 0.9% 50 ML IVPB SCH (17:28)
[2018-03-27] MEDS: METOPROLOL TARTRATE 25 MG TAB PO SCH (20:22)
[2018-03-27] MEDS: carBAMazepine 300 MG CPMP.12HR PO SCH (20:22)
[2018-03-27] MEDS ORDERED: AMMONIUM LACTATE 12% LOTION 225 GM BTL TOPICAL SCH (21:00)
[2018-03-28] MEDS: VALPROATE SODIUM 500 MG in SODIUM CHLORIDE 0.9% 50 ML IVPB SCH ×2 (00:43→10:17)
[2018-03-28] MEDS: DEXTROSE 5%-0.9% NACL 1,000 ML IV SCH (05:43)
[2018-03-28] MEDS ORDERED: VANCOMYCIN 1,000 MG in SODIUM CHLORIDE 0.9% 250 ML IVPB ONE (07:30)
[2018-03-28] MEDS ORDERED: LIDOCAINE 1% INJ 10MG/ML (20 ML MDV) ONE (08:35)
[2018-03-28] MEDS ORDERED: PROPOFOL 10 MG/ML 20 ML VIAL IV ONE (08:35)
[2018-03-28] MEDS ORDERED: SODIUM CHLORIDE 0.9% 900 ML IV ONE (08:44)
[2018-03-28] MEDS: PANTOPRAZOLE 40 MG/10 ML VIAL IVP SCH (10:17)
--- NOTE | 2018-03-28 10:38 | P.PCN ---
Date of Procedure: 03/28/18 Description of Procedure: Brief history: Patient is a 72-year-old pleasant scheduled for an EGD with PEG tube placement today. The patient presented to the hospital from her nursing facility due to decreased oral intake and failure to thrive. The patient has dementia with poor oral intake. Procedure performed: EGD with PEG tube placement Preoperative diagnosis: Failure to thrive, inadequate oral intake IV sedation by anesthesia Procedure: After informed consent was obtained with the patient as well as the family the patient was brought into the endoscopy unit. IV conscious sedation was administered by anesthesia under continuous monitoring. The Olympus GF 190 video endoscope was inserted into the mouth and esophagus intubated without any difficulty and was gradually advanced to the stomach and duodenum. The bulb and second part of the duodenum was visualized which appeared normal. The scope at this time was withdrawn to the stomach adequately insufflated with air. Adequate transillumination was achieved onto the anterior abdominal wall. At the site of adequate transillumination and maximal finger indentation, on the anterior abdominal wall, this area was sterilely prepped and draped. One percent Lidocaine was infiltrated into the skin and a small incision was made. Trocar and cannula was passed through the incision into the stomach cavity. The trocar was removed. The insertion wire was passed through the cannula into the stomach. The insertion wire was snared and then the insertion wire, snare and endoscope were withdrawn from the mouth. The insertion wire was then attached to a [employer] PEG tube. The insertion wire was then pulled with the PEG tube through the incision site. PEG tube was pulled until the internal bolster was sitting snugly against the gastric mucosa which was confirmed with repeat EGD. On repeat EGD the esophagus was intubated without any difficulty and was advanced into the stomach. The internal bumper appeared to be in secure position. The visualized portions of the antrum body cardia and fundus of the stomach appeared normal. The esophagus was carefully examined as the scope was gradually being withdrawn which appeared normal. At this time external bumper was placed on the PEG tube closer to the anterior abdominal wall at 4 cm cooper. The patient tolerated the procedure well. Impression: Successful 20[employer] PEG tube placement as described above. Recommendations: Findings of this examination were discussed with the patient's family. The patient will be started on tube feeds tomorrow. Post-PEG tube orders were written.
[2018-03-28] MEDS: METOPROLOL TARTRATE 25 MG TAB PO SCH (11:45)
[2018-03-28] MEDS: carBAMazepine 300 MG CPMP.12HR PO SCH (11:45)
--- NOTE | 2018-03-28 14:57 | P.DS ---
Providers Date of admission: 03/26/18 15:06 Attending physician: Amado Murray Consults: 03/26/18 17:45 Consult Physician Routine Consulting Provider: Amanda Day Consult Reason/Comments: Peg tube placement Do you want consulting provider notified?: Yes Primary care physician: Luiz Ortiz Hospital Course: Patient had a PEG tube today will be discharged back to the half-way. Patient will be resumed on hospice and PEG tube was placed as per the request of the family members for feeding and medication purposes. Valproic acid levels within normal limits PHYSICAL EXAMINATION: Patient is lying in the bed comfortably, no acute distress, awake alert but cannot provide history. HEENT: Normocephalic. Neck is supple. Pupils reactive. Legally blind. Nostrils clear. Oral cavity is moist. Ears reveal no drainage. Neck reveals no JVD, carotid bruits, or thyromegaly. CHEST EXAMINATION: Trachea is central. Symmetrical expansion. Bibasilar diminished air entry. Lung gleason clear to auscultation and percussion. CARDIAC: Normal S1, S2 with no gallops. No murmurs ABDOMEN: Soft. Bowel sounds normal. No organomegaly. No abdominal bruits. Extremities: reveal no edema. No clubbing or cyanosis Neurologically awake, alert, oriented x1 . Able to move all extremities. Skin: No rash or skin lesions. Psychiatric: Coperative. Could not be assessed Musculoskeletal: No joint swelling or deformity. Normal range of motion. Assessment and Plan Plan: -Dysphagia: Secondary to advanced Parkinson's and dementia patient will receive PEG tube. -Seizure disorder Advanced dementia probably Lewy body dementia Paroxysmal Atrial fibrillation. Mildly elevated heart rate reflux because she didn't receive her metoprolol, improved now Chronic CHF with ejection fraction unknown Hyperlipidemia Legally blind Parkinson's disease Contracture left hand Hypertension Seizure disorder Hypothyroidism Chronic urinary incontinence Depression Chronic medical debility, at her baseline uses a [place] lift. Chronic dysarthria, likely from underlying old stroke. -CODE STATUS DO NOT RESUSCITATE Patient Condition at Discharge: Stable Plan - Discharge Summary Discharge Rx Participant: No New Discharge Prescriptions: No Action Simethicone [Gas-X] 125 mg PO TID Metoprolol Tartrate [Lopressor] 25 mg PO BID@0900,2100 lamoTRIgine [LaMICtal] 150 mg PO BID@0900,2100 carBAMazepine [Carbatrol] 300 mg PO BID@09,2099 Omeprazole [PriLOSEC] 20 mg PO DAILY@0600 Folic Acid 1 mg PO DAILY@0900 Doxazosin Mesylate 2 mg PO DAILY@0900 Lactulose [Cephulac] 10 gm PO BID@09,2099 Ipratropium-Albuterol Nebulize [Duoneb 0.5 mg-3 mg/3 ml Soln] 3 ml INHALATION RT-Q4H PRN PRN Reason: Cough Valproic Acid [Depakene] 500 mg PO BID@09,2099 Acetaminophen Tab [Tylenol] 650 mg PO Q4H PRN PRN Reason: Pain Ammonium Lactate Lotion [Lac-Hydrin 12% Lotion] 1 applic TOPICAL HS guaiFENesin [guaiFENesin Oral Solution] 200 mg PO Q4H PRN PRN Reason: Cough Ensure Clear 120 ml PO TID@,1299,2099 DULoxetine HCL [Cymbalta] 20 mg PO DAILY@0900 Bismuth Subsalicylate [Pepto-Bismol] 524 mg PO Q4HR PRN PRN Reason: Diarrhea Doxazosin Mesylate 2 mg PO DAILY Furosemide [Lasix] 20 mg PO DAILY guaiFENesin-DM 100-10MG/5ML [Robitussin DM] 200 mg PO Q6H PRN PRN Reason: Cough Morphine Sulfate [Morphine Sulfate Oral Soln Conc (20 MG/ML)] 5 mg PO Q4H PRN PRN Reason: Pain Potassium Chloride [Klor-Con 20] 20 meq PO DAILY Simvastatin [Zocor] 10 mg PO HS Discharge Medication List Doxazosin Mesylate 2 mg PO DAILY@0906/30/14 [History] Folic Acid 1 mg PO DAILY@0906/30/14 [History] Metoprolol Tartrate [Lopressor] 25 mg PO BID@899,209906/30/14 [History] Omeprazole [PriLOSEC] 20 mg PO DAILY@0606/30/14 [History] Simethicone [Gas-X] 125 mg PO TID 06/30/14 [History] carBAMazepine [Carbatrol] 300 mg PO BID@0900,209906/30/14 [History] lamoTRIgine [LaMICtal] 150 mg PO BID@0900,209906/30/14 [History] Lactulose [Cephulac] 10 gm PO BID@0900,209911/03/14 [History] Ipratropium-Albuterol Nebulize [Duoneb 0.5 mg-3 mg/3 ml Soln] 3 ml INHALATION RT -Q4H PRN 11/20/14 [History] Acetaminophen Tab [Tylenol] 650 mg PO Q4H PRN 11/03/16 [History] Valproic Acid [Depakene] 500 mg PO BID@0900,209911/03/16 [History] Ammonium Lactate Lotion [Lac-Hydrin 12% Lotion] 1 applic TOPICAL HS 09/13/17 [ History] DULoxetine HCL [Cymbalta] 20 mg PO DAILY@0900 09/13/17 [History] Ensure Clear 120 ml PO TID@09,1300,209909/13/17 [History] guaiFENesin [guaiFENesin Oral Solution] 200 mg PO Q4H PRN 09/13/17 [History] Bismuth Subsalicylate [Pepto-Bismol] 524 mg PO Q4HR PRN 03/23/18 [History] Doxazosin Mesylate 2 mg PO DAILY 03/26/18 [History] Furosemide [Lasix] 20 mg PO DAILY 03/26/18 [History] Morphine Sulfate [Morphine Sulfate Oral Soln Conc (20 MG/ML)] 5 mg PO Q4H PRN [History] Potassium Chloride [Klor-Con 20] 20 meq PO DAILY 03/26/18 [History] Simvastatin [Zocor] 10 mg PO HS 03/26/18 [History] guaiFENesin-DM 100-10MG/5ML [Robitussin DM] 200 mg PO Q6H PRN 03/26/18 [History] Follow up Appointment(s)/Referral(s): Luiz Ortiz MD [Primary Care Provider] - 1-2 days
[2018-03-28 15:16] VITALS: BP 169/90; PULSE 96; RESP 15; TEMP 98.8
== END 2018-03-28 16:15 | disposition hospice, inpatient (51) ==
LOC: EC 14:04 → 3SUR 15:06
PROVIDERS: ADMIT Hospitalist; ATTEND Hospitalist
DX: G20 Parkinson's disease (principal); F02.80 Dementia in other diseases classified elsewhere, unspecified severity, without behavioral disturbance, psychotic disturbance, mood disturbance, and anxiety; G40.909 Epilepsy, unspecified, not intractable, without status epilepticus; I48.0 Paroxysmal atrial fibrillation; I11.0 Hypertensive heart disease with heart failure; I50.9 Heart failure, unspecified; E78.5 Hyperlipidemia, unspecified; H54.8 Legal blindness, as defined in USA; E03.9 Hypothyroidism, unspecified; R32 Unspecified urinary incontinence; R15.9 Full incontinence of feces; F32.9 Major depressive disorder, single episode, unspecified; Z66 Do not resuscitate; R53.81 Other malaise; R00.0 Tachycardia, unspecified; R47.1 Dysarthria and anarthria; R05 Cough; R62.7 Adult failure to thrive; Z86.73 Personal history of transient ischemic attack (TIA), and cerebral infarction without residual deficits; Z79.899 Other long term (current) drug therapy; Z88.5 Allergy status to narcotic agent; Z88.1 Allergy status to other antibiotic agents; I25.10 Atherosclerotic heart disease of native coronary artery without angina pectoris; Z87.01 Personal history of pneumonia (recurrent); M81.0 Age-related osteoporosis without current pathological fracture; E88.09 Other disorders of plasma-protein metabolism, not elsewhere classified; D64.9 Anemia, unspecified; Z87.440 Personal history of urinary (tract) infections; Z86.14 Personal history of Methicillin resistant Staphylococcus aureus infection; Z74.01 Bed confinement status; E87.6 Hypokalemia; M19.90 Unspecified osteoarthritis, unspecified site; K21.9 Gastro-esophageal reflux disease without esophagitis
CPT/HCPCS: 99285; 96365 ×2; 96366 ×6; 96367; 96375; 36415; 97163; 97167; 84134; 80164 ×2; 80165; 80053; 85025; 74019; 43246; G0378 ×3; J3370; J2001; J3480; J2704; C9113 ×2; B4087